=== PATIENT | male | born 1940 | race Caucasian/White ===

== ENCOUNTER 2017-10-08 19:22 | Inpatient (IN) | payer MEDICARE ==
[~2017-10-08 19:22] MED LIST: ISOVUE-370 76%-LOCM 1 ML ONE
--- NOTE | 2017-10-08 20:29 | RAD ---
PORTABLE CHEST: 10/08/17 HISTORY: Mental status change. The lungs appear clear. No evidence of vascular congestion, edema, or infiltrate. Heart size is upper normal. IMPRESSION: No acute abnormality identified. POS: [facility]
--- NOTE | 2017-10-08 20:30 | RAD ---
AP PELVIS: 10/08/17 HISTORY: Patient found down. Pelvis appears intact. Femoral heads appear intact. IMPRESSION: No acute fracture identified. POS: [facility]
--- NOTE | 2017-10-08 20:31 | RAD ---
RIGHT HIP: 10/08/17 Two views. HISTORY: Fall with injury to right hip. Deformity. No evidence of hip fracture identified. Femoral head contour is normal. IMPRESSION: No acute fracture identified. POS: [facility]
[2017-10-08 20:46] LABS: Hemoglobin 17.2 g/dL (14.0-18.0); Mean Corpuscular HGB CONC 32.9 g/dL (32.0-36.0); Mean Corpuscular Hemoglobin 32.7 pg (27.0-31.0); Mean Corpuscular Volume 99.4 fl (80.0-94.0); Platelet Count 465 thou/uL (130-400); RBC Distribution Width 14.2 % (11.5-14.5); Red Blood Cell (RBC) Count 5.27 mill/uL (4.70-6.10); White Blood Cell (WBC) Count 28.7 thou/uL (4.8-10.8)
[2017-10-08 21:00] LABS: CKMB 4.9 ng/mL (0-6.6); Troponin I 0.016 ng/mL (< 0.028)
[2017-10-08 21:01] LABS: Band 1 % (5-11); Lymphocytes 3 % (21-51); MDiff Complete? YES; Monocytes 17 % (0-10); Neutrophil 79 % (42-75); PLT Morphology Comment Appears Increased
[2017-10-08 21:02] LABS: ALT (SGPT) 15 U/L (8-55); AST (SGOT) 21 U/L (5-34); Albumin 4.3 g/dL (3.4-4.8); Alkaline Phosphatase 66 U/L (40-150); Anion Gap 20 mmol/L (10-20); BUN (Urea Nitrogen) 8 mg/dL (8.4-25.7); Bilirubin, Total 1.7 mg/dL (0.2-1.2); Calc. Creatinine Clearance 0 mL/min (70-130); Carbon Dioxide 20 mmol/L (23-31); Chloride 93 mmol/L (98-107); Estimated GFR-MDRD 68; Globulin 4.2 g/dL (2.4-3.5); Glucose 129 mg/dL (83-110); Potassium 4.1 mmol/L (3.5-5.1); Protein, Total 8.5 g/dL (5.8-8.1); Sodium 129 mmol/L (136-145)
--- NOTE | 2017-10-08 21:23 | CT ---
CT HEAD WITHOUT CONTRAST: 10/08/17 Multiple axial tomograms obtained through the head without IV enhancement. HISTORY: Found down by EMS. Mental status change. Ventricles are normal in size and position. There are mild chronic ischemic white matter changes. Mil d to moderate cortical atrophy. No mass, edema, or acute hemorrhage identified. No evidence of acute infarct. IMPRESSION: No acute findings. POS: [facility]
--- NOTE | 2017-10-08 21:29 | CT ---
CT CERVICAL SPINE: 10/08/17 Multiple axial tomograms obtained through the cervical spine with multiplanar reconstruction. HISTORY: Found down by EMS. Mental status change. Cervical vertebrae maintain height and alignment. There are degenerative changes with loss of disc sp matheus at all levels of the cervical spine. No evidence of fracture identified. IMPRESSION: No evidence of fracture identified. POS: [facility]
[2017-10-08 22:00] LABS: Bilirubin Moderate (Negative); Blood, Urine Moderate (Negative); Clarity CLOUDY (Clear); Glucose, Urine (Dipstick) Negative (Negative); Leukocyte Negative (Negative); Nitrite Negative (Negative); Protein, Urine (Dipstick) 100 mg/dL (Neg-Trace); Specific Gravity, Urine 1.017 (1.002-1.036)
[2017-10-08 22:02] LABS: Bacteria/HPF None Seen HPF (None Seen); Hyaline Casts/LPF 7-10 HYALINE CAST LPF (0-3 Hyaline); Pathc Cast-AUWi Flag 1.49 (0-2.49); RBC/HPF 21-50 HPF (0-3); Squamous Epithelial 0-3 HPF (0-3); WBC/HPF 0-3 HPF (0-3)
--- NOTE | 2017-10-08 22:26 | CT ---
CT ABDOMEN AND PELVIS WITH CONTRAST: 10/08/17 Multiple axial tomograms obtained through the abdomen and pelvis with IV enhancement. HISTORY: Patient found down. Mental status change. Lung bases are clear. Liver, spleen and pancreas unremarkable. Kidneys unremarkable. No hydronephrosi s. There are small renal cystic lesions seen. There is no intra-abdominal blood or fluid. Small bowel loops are normal caliber. Images through the pelvis show prostatic hypertrophy. Urinary bladder is u nremarkable. The aorta is normal caliber. The pelvis appears intact. There is a very subtle subcapital fracture involving the right hip. IMPRESSION: 1. A very subtle subcapital fracture of the right femoral head. 2. No acute intra-abdominal injury. No pelvic fracture. CT LOWER THORACIC AND LUMBAR SPINE: Coronal and sagittal reconstructions performed. The lower thoracic and lumbar vertebrae maintain norm al height and alignment. There is no evidence of fracture or compression. POS: [facility]
[2017-10-08 23:19] LABS: Osmolality, Urine 418 mOsm/kg (300-900)
[2017-10-08 23:50] LABS: Sodium, Urine 33 mmol/L (Not Available)
[2017-10-09] LABS: Lactic Acid 1.7 mmol/L (0.5-2.2)
[2017-10-09] MEDS ORDERED: Acetaminophen 325 MG TAB PO PRN ×2 (00:26→00:31)
[2017-10-09] MEDS ORDERED: Sodium Chloride 0.9% 1,000 ML IV SCH (00:26)
[2017-10-09] MEDS ORDERED: Ondansetron ODT 4 MG TAB SL PRN (00:26)
[2017-10-09] MEDS ORDERED: Ondansetron HCl/PF 4 MG/2 ML Vial IVP PRN (00:26)
[2017-10-09] MEDS ORDERED: Ondansetron ODT 4 MG TAB PO PRN (00:31)
[2017-10-09 00:43] LABS: Folate (Folic Acid) 11.3 ng/mL (7.0-31.4)
[2017-10-09 00:50] VITALS: BMI 21.9
--- NOTE | 2017-10-09 04:11 | HP-2 ---
CODE STATUS: FULL. PRIMARY CARE PHYSICIAN: [facility]. ATTENDING: Dr. De Yan RESIDENT: Dr. Taiwo Mcdonough CHIEF COMPLAINT: Altered mental status. HISTORY OF PRESENT ILLNESS: This is a 77-year male that was presented by EMS after a fall. His last known normal state of mind was over 24 hours ago. He was found by his neighbors after they heard mo aning. At this time, he denies any pain or recent illness. Family was not available at the time of interview. He has no other complaints at this time. Again, this patient is a very poor historian. In the ER, he was given a normal saline bolus of 1 liter. PAST MEDICAL HISTORY: Rheumatoid arthritis. PAST SURGICAL HISTORY: Left knee, right foot and a tonsillectomy. ALLERGIES: No known drug allergies. MEDICATIONS: 1. Folic acid 1 mg b.i.d. 2. Prednisone 5 mg daily. 3. Methotrexate 2.5 mg 8 tabs once a week. 4. Fosamax 70 mg 1 tab orally once a week. 5. Vitamin D with calcium. FAMILY HISTORY: Noncontributory. SOCIAL HISTORY: No tobacco, alcohol or drug use. REVIEW OF SYSTEMS: Unable to be obtained at this time. PHYSICAL EXAMINATION: VITAL SIGNS: Blood pressure was 184/98, pulse 84, respiration 17, temperature max 97.8, pulse ox 100 % on room air, current weight 75 kilos. GENERAL: He is alert and oriented x3. He is appropriately interactive. EYES: PERRLA. Conjunctivae within normal limits. ENT: Tympanic membranes are pearly harper without bulging or erythema. Nasal mucosa within normal gonzalez its. Oropharynx showed multiple missing teeth and poor dentition as well as dry mucous membranes. NECK: Supple, no lymphadenopathy, no thyromegaly. CARDIOVASCULAR: Regular rate and rhythm. No murmurs. Radial and pedal pulses equal bilaterally. RESPIRATORY: Normal effort, no retractions, clear lungs to auscultation bilaterally. SKIN: Warm and dry. No cyanosis. No lesions. ABDOMEN: Soft, nontender to palpation. Bowel sounds are present x4. No masses or distention. EXTREMITIES: No clubbing, cyanosis or edema. MUSCULOSKELETAL: Structure and tone within normal limits. He did show that he had decreased movemen t of his right lower extremity. He was poorly cooperative with mental exam because of his mental sta tus. NEUROLOGIC: No focal neurologic deficits were elicited other than a mild lid lag, left eyelid droop as well as a left oral droop. Again, he was poorly cooperative with this exam due to his mental stat e. His GCS was 15. The patient also showed a slowing of cognition and mild dysarthria during the ex am as well. The patient was also urine incontinent at this time. LABORATORY DATA: White blood cell count 28.7, platelet count 465, hemoglobin 17.2, hematocrit 52.4, MCV was 99.4, 79% neutrophils, 1% bands. Sodium is 129, potassium 4.1, chloride 93, bicarb 20, BUN 8 , creatinine 1.06, glucose was 129, calcium 10.0, total protein is 8.5, albumin 4.3, total bilirubin 1.7. AST was 21, ALT is 15, alkaline phosphatase 66. CK-MB is 4.9. Troponin I was 0.016. Urinalys is showed a specific gravity 1.077, a moderate amount of blood, 100 for protein, negative for leukocy te esterase, negative for nitrites, 15 for ketones, negative for glucose, 21-50 RBCs, 0-3 white blood cells, no bacteria seen. EKG showed normal sinus rhythm with flattened T waves in V1 and V2. IMAGING: The patient had a CT of his abdomen and pelvis that showed a very subtle subcapital fractur e of the right femoral head. No acute intra-abdominal injury, no pelvic fracture. It also showed no evidence of fracture or compression of his lower thoracic and lumbar spine. The patient had a CT ce rvical spine that showed no evidence of fracture identified. He also had a CT head without contrast that showed no acute findings. Also had a right hip x-ray that showed no acute fracture identified. He had an a pelvis AP x-ray that showed no acute fracture identified. He had a portable chest x-ray that showed no acute abnormality identified. ASSESSMENT AND PLAN: We have a 77-year-old male. 1. Encephalopathy with unknown origin. He was basically caceres scanned and was negative at this time. We did contact his brother, Sha, for further information and he has actually been in [place] over the winter and he has not seen him regularly, but he did say as recently as a few weeks ago, the patient suffered from like an upper respiratory like infection, but had recovered from that well. He did als o state at that time that his brother does not eat and drink as well as he should at times. We are g oing to rule out a stroke. We are going to allow for permissive hypertension up to 220/110 mmHg. We will put him on the neuro checks. We will make him n.p.o. until he passes a formal speech study. We also have several labs that will be pending at this time including ammonia, thiamine, osmolarity korina dies. 2. Hyponatremia, it is likely hypovolemic from dehydration. We will give him IV fluids and recheck that with a BMP. 3. Leukocytosis with a status of immunosuppression on methotrexate. Source is unknown. We will con medical coding technician antibiotics if a source presents itself or if he becomes febrile. 4. Hyperbilirubinemia, likely due to dehydration. We will trend that. 5. Dehydration. Give him IV fluids. 6. Hyperglycemia. We will monitor with a BMP. We will consider Accu-Cheks if it does elevate quite a bunch. 7. Elevated blood pressure, we are ruling out cardiovascular, so we are going to allow for permissiv e hypertension. It could be chronic or could be due to an acute cause. 8. Rheumatoid arthritis. We will continue his home meds. DISPOSITION/LENGTH OF HOSPITAL STAY: Will be inpatient and 2 midnights. Symptomatic medications will be provided. History and physical exam as well as management has been discussed with Dr. Yan.
[2017-10-09] MEDS: Sodium Chloride 0.9% 1,000 ML IV SCH ×4 (04:52→15:27)
[2017-10-09 06:15] LABS: Hemoglobin 14.4 g/dL (14.0-18.0); Lymphocytes 11 % (21-51); MDiff Complete? YES; Mean Corpuscular HGB CONC 34.1 g/dL (32.0-36.0); Mean Corpuscular Hemoglobin 34.1 pg (27.0-31.0); Mean Platelet Volume 8.3 fL (7.4-10.4); Monocytes 12 % (0-10); Neutrophil 77 % (42-75); Platelet Count 326 thou/uL (130-400); RBC Distribution Width 14.3 % (11.5-14.5); Red Blood Cell (RBC) Count 4.24 mill/uL (4.70-6.10); White Blood Cell (WBC) Count 17.9 thou/uL (4.8-10.8)
[2017-10-09 06:17] LABS: Anion Gap 13 mmol/L (10-20); BUN (Urea Nitrogen) 7 mg/dL (8.4-25.7); Calc. Creatinine Clearance 73 mL/min (70-130); Calcium 8.6 mg/dL (7.8-10.44); Carbon Dioxide 21 mmol/L (23-31); Cardiac Risk 3.8 (Less than 4.5); Chloride 100 mmol/L (98-107); Cholesterol 164 mg/dl (< 200 Desired); Estimated GFR-MDRD Greater than 90; Glucose 98 mg/dL (83-110); HDL Cholesterol 43 mg/dL (>60 Neg Risk); LDL Cholesterol, Calculated 105 mg/dL; Potassium 3.9 mmol/L (3.5-5.1); Sodium 130 mmol/L (136-145); Triglycerides 80 mg/dL (Less than 150)
--- NOTE | 2017-10-09 06:24 | PDOC.FM ---
- Subjective Subjective: Patient very pleasant this morning. Does not remember fall. Reports mild abdominal pain today. Denies etoh and drug use. No acute events overnight. Patient began vomiting thick yellow mucousy vomitus during exam. - Objective MAR Reviewed: Yes Vital Signs & Weight: Vital Signs (12 hours) Temp Pulse Resp BP Pulse Ox 10/09/17 03:06 99.0 F 76 20 97 10/09/17 00:20 99.0 F 76 20 156/73 H 98 Weight Weight 67.33 kg Result Diagrams: 10/09/17 05:14 10/09/17 05:14 <Jazmin Myles - Last Filed: 10/09/17 09:15> - Objective Vital Signs & Weight: Vital Signs (12 hours) Temp Pulse Resp BP Pulse Ox 10/09/17 08:00 97.7 F 80 20 139/66 97 10/09/17 04:31 98.4 F 72 20 152/74 H 96 10/09/17 03:06 99.0 F 76 20 97 10/09/17 00:20 99.0 F 76 20 156/73 H 98 Weight Weight 67.33 kg Result Diagrams: 10/09/17 05:14 10/09/17 05:14 <Pio Rascon - Last Filed: 10/09/17 10:52> Phys Exam - Physical Examination Constitutional: NAD HEENT: sclera anicteric poor dentition, multiple missing teeth, dry MM Neck: no nodes Respiratory: no wheezing, no rales, clear to auscultation bilateral Cardiovascular: RRR, no significant murmur Gastrointestinal: soft, positive bowel sounds mild ttp, mild distension Musculoskeletal: no edema Neurological: non-focal, moves all 4 limbs UE strength 4/5 Deviation from normal: AOx2 Skin: no rash <Jazmin Myles - Last Filed: 10/09/17 09:15> Dx/Plan (1) Altered mental status Code(s): R41.82 - ALTERED MENTAL STATUS, UNSPECIFIED Status: Acute (2) Dehydration with hyponatremia Code(s): E87.1 - HYPO-OSMOLALITY AND HYPONATREMIA Status: Acute (3) Leukocytosis Code(s): D72.829 - ELEVATED WHITE BLOOD CELL COUNT, UNSPECIFIED Status: Acute (4) Hyperbilirubinemia Code(s): E80.6 - OTHER DISORDERS OF BILIRUBIN METABOLISM Status: Acute (5) Rheumatoid arthritis Code(s): M06.9 - RHEUMATOID ARTHRITIS, UNSPECIFIED Status: Acute (6) Hematuria Code(s): R31.9 - HEMATURIA, UNSPECIFIED Status: Acute - Plan Plan: AMS - r/o stroke with physical exam findings of L facial droop and dysarthria, MRI this morning - consider consulting Neuro pending MRI results - Prolactin wnl and 24hrs s/p onset, not likely related to seizure - WBC elevated but no source for infection, LA wnl, will monitor for fever and obtain blood cx - HIV, RPR, thiamine pending - UDS, SDS, and CK Hypovolemic Hyponatremia - awaiting morning labs to see if improvement with IVF - given 2L bolus in ED and NS @ 125ml/hr - serum osm 275, urine osm wnl, urine Na wnl Leukocytosis - as above - blood cx pending. Repeat CBC this morning not back yet. Hyperbilirubinemia - likely 2/2 dehydration, will repeat CMP Hematuria - no gross hematuria - no evidence of mass on CTabd/pelvis - should have repeat UA in 2-4weeks to determine if it is persistent and needs further workup - could be due to acute illness RA - continue home meds <Jazmin Myles - Last Filed: 10/09/17 09:15> Attending Addendum - Attending Addendum I personally evaluated the patient and discussed the management with Dr. Myles. I agree with the History, Examination, Assessment and Plan documented above with any addition or exceptions noted below. Pt had some slowed mentation, but improved now. His family is at his bedside this morning. Pending MRI this morning to r/o CVA. Labs and clinically pt is significantly improved with fluids. Lives in independent living at [facility], family confirms that neighbor found him down, he has been throwing up some for the last 5 days from gastroenteritis. <Pio Rascon - Last Filed: 10/09/17 10:52>
[2017-10-09 06:32] LABS: Syphilis Antibody Nonreactive (Nonreactive); Syphilis Antibody Index 0.06 S/CO (<1.00 Non-Reactive)
[2017-10-09 06:33] LABS: HIV (1/2) Antibody/Antigen Non-Reactive (NonReactive); HIV 1/2 INDEX 0.08 S/CO (<1.00)
[2017-10-09] MEDS ORDERED: Methotrexate Sodium 2.5 MG TAB PO SCH ×2 (09:00)
[2017-10-09] MEDS ORDERED: Ergocalciferol 1.25 MG(50,000 UNITS) CAP PO SCH (09:00)
[2017-10-09 09:20] LABS: Amphetamine Not Detected (NotDetected); Barbiturates Screen Not Detected (NotDetected); Benzodiazepine Screen Not Detected (NotDetected); Cocaine Metabolite Screen Not Detected (NotDetected); Medtox Control Line Valid? VALID (VALID); Medtox Reader # READER 1; Methadone Not Detected (NotDetected); Methamphetamine Not Detected (NotDetected); Opiate Screen Not Detected (NotDetected); Oxycodone Screen Not Detected (NotDetected); Phencyclidine (PCP) Not Detected (NotDetected); THC/Cannabinoid Screen Not Detected (NotDetected); Tricyclic Screen Not Detected (NotDetected)
[2017-10-09 09:43] LABS: Acetaminophen Less than 6.0 mcg/mL (10.0-30.0); Alcohol Less than 10 mg/dL (Less than 10); CK (CPK) 499 U/L (30-200); Salicylate Less than 8.0 mg/dL (15.0-30.0)
[2017-10-09] MEDS: Aspirin 81 mg Enteric Coated Tablet PO SCH (10:58)
[2017-10-09] MEDS: predniSONE 5 MG TAB PO SCH (10:58)
[2017-10-09] MEDS: Ergocalciferol 1.25 MG(50,000 UNITS) CAP PO SCH (10:59)
[2017-10-09] MEDS: Famotidine 20 MG TAB PO SCH ×2 (10:59→22:17)
[2017-10-09] MEDS: Folic Acid 1 MG TAB PO SCH (11:00)
--- NOTE | 2017-10-09 15:20 | MRI ---
BRAIN MRI WITH AND WITHOUT CONTRAST: Clinical history: Patient found down. Clinical evaluation for stroke, CVA. FINDINGS: There is parenchymal volume loss with compensatory dilatation of the ventricular system. There is no acute territorial infarction, mass effect, or midline shift. Mild chronic microvascular ischemic dise ase is present without the cerebral white matter. No pathologic intraaxial enhancement. The imaged sk ull base flow voids are grossly patent. [place] intraocular lens is absent. There is scattered mucosal thickening in the paranasal sinuses. Mild right mastoid fluid is present. IMPRESSION: 1. No acute intracranial abnormalities. 2. Mild chronic microvascular ischemic disease. POS: [facility]
[2017-10-10] MEDS: Sodium Chloride 0.9% 1,000 ML IV SCH ×2 (03:27→09:39)
--- NOTE | 2017-10-10 07:00 | PDOC.FM ---
- Subjective Subjective: Patient awake and doing well this am. Staff reports was up all night and tried to get out of bed multiple times. No more vomiting or diarrhea. Nurse also reports very thirsty overnight. Patient with no complaints this am. - Objective MAR Reviewed: Yes Vital Signs & Weight: Vital Signs (12 hours) Temp Pulse Resp BP Pulse Ox 10/10/17 04:00 97.4 F L 83 16 162/117 H 98 10/10/17 00:00 97.0 F L 73 18 151/92 H 96 10/09/17 20:00 97.5 F L 67 18 97 10/09/17 19:58 97.5 F L 67 18 125/76 97 Weight Weight 67.33 kg I&O: 10/09/17 10/10/17 10/11/17 06:59 06:59 06:59 Intake Total 4772.5 Output Total 600 Balance 4172.5 Result Diagrams: 10/10/17 07:43 10/10/17 07:43 <Jazmin Myles - Last Filed: 10/10/17 09:21> - Objective Vital Signs & Weight: Vital Signs (12 hours) Temp Pulse Pulse Pulse Resp BP BP 10/10/17 08:45 80 84 140/74 144/76 H 10/10/17 07:55 98.2 F 66 20 10/10/17 04:00 97.4 F L 83 16 10/10/17 00:00 97.0 F L 73 18 BP Pulse Ox 10/10/17 08:45 10/10/17 07:55 140/68 98 10/10/17 04:00 162/117 H 98 10/10/17 00:00 151/92 H 96 Weight Weight 67.33 kg I&O: 10/09/17 10/10/17 10/11/17 06:59 06:59 06:59 Intake Total 4772.5 Output Total 600 Balance 4172.5 Result Diagrams: 10/10/17 07:43 10/10/17 07:43 <Pio Rascon - Last Filed: 10/10/17 10:21> Phys Exam - Physical Examination Constitutional: NAD HEENT: PERRLA, sclera anicteric Neck: no nodes Respiratory: no wheezing, no rales Cardiovascular: RRR, no significant murmur Gastrointestinal: soft, non-tender Musculoskeletal: no edema Neurological: non-focal Psychiatric: normal affect, A&O x 3 <Jazmin Myles - Last Filed: 10/10/17 09:21> Dx/Plan (1) Altered mental status Code(s): R41.82 - ALTERED MENTAL STATUS, UNSPECIFIED Status: Acute (2) Dehydration with hyponatremia Code(s): E87.1 - HYPO-OSMOLALITY AND HYPONATREMIA Status: Acute (3) Leukocytosis Code(s): D72.829 - ELEVATED WHITE BLOOD CELL COUNT, UNSPECIFIED Status: Acute (4) Hyperbilirubinemia Code(s): E80.6 - OTHER DISORDERS OF BILIRUBIN METABOLISM Status: Acute (5) Rheumatoid arthritis Code(s): M06.9 - RHEUMATOID ARTHRITIS, UNSPECIFIED Status: Acute (6) Hematuria Code(s): R31.9 - HEMATURIA, UNSPECIFIED Status: Acute - Plan Plan: AMS - continues to improve, unsure if at baseline or not - MRI negative for CVA - MMSE performed today with score of 25, consider MoCA for better evaluation for mild dementia - Prolactin wnl and 24hrs s/p onset, not likely related to seizure - WBC elevated but no source for infection, LA wnl, will monitor for fever and obtain blood cx - HIV, RPR, wnl - UDS, SDS wnl Hypovolemic Hyponatremia - resolved, d/c fluids Leukocytosis - as above - blood cx pending. Repeat CBC this morning not back yet. Hyperbilirubinemia - improved Hematuria - no gross hematuria - no evidence of mass on CTabd/pelvis - should have repeat UA in 2-4weeks to determine if it is persistent and needs further workup - could be due to acute illness RA - continue home meds Deconditioning - PT eval - could need placement for stregth conditioning before going home <Jazmin Myles - Last Filed: 10/10/17 09:21> Attending Addendum - Attending Addendum I personally evaluated the patient and discussed the management with Dr. Myles I agree with the History, Examination, Assessment and Plan documented above with any addition or exceptions noted below. Pt clinically feels much better, agitated o/n. Possible delirium. Completed a MMSE today with a score of 24. Staff states that he has been needing assistance getting out of bed, so will get PT eval. Possible SNF placement. Follow-up CT findings offracture not seen on plain films and pt' clinically is ambulating inconsistent with fracture. If radiology confirms fracture, consult Ortho prior to discharge. BP elevated this am, monitor for trend as tends to vary fairly widely. <Pio Rascon - Last Filed: 10/10/17 10:21>
[2017-10-10 08:40] LABS: #Eosinphils 0.1 thou/uL (0.0-0.7); #Lymphocytes 1.8 thou/uL (1.20-3.40); #Monocytes 1.2 thou/uL (0.11-0.59); #Neutrophils 8.7 thou/uL (1.40-6.50); %Basophils 0.3 % (0.0-1.0); %Eosinophils 0.5 % (0.0-10.0); %Monocytes 10.1 % (0.0-10.0); %Neutrophils 74.2 % (42.0-75.0); Hemoglobin 13.1 g/dL (14.0-18.0); Mean Corpuscular HGB CONC 32.9 g/dL (32.0-36.0); Mean Corpuscular Hemoglobin 33.4 pg (27.0-31.0); Mean Platelet Volume 8.4 fL (7.4-10.4); Platelet Count 325 thou/uL (130-400); RBC Distribution Width 14.2 % (11.5-14.5); Red Blood Cell (RBC) Count 3.94 mill/uL (4.70-6.10); White Blood Cell (WBC) Count 11.7 thou/uL (4.8-10.8)
[2017-10-10 08:55] LABS: Anion Gap 13 mmol/L (10-20); BUN (Urea Nitrogen) 5 mg/dL (8.4-25.7); Calc. Creatinine Clearance 82 mL/min (70-130); Calcium 8.6 mg/dL (7.8-10.44); Carbon Dioxide 23 mmol/L (23-31); Chloride 106 mmol/L (98-107); Estimated GFR-MDRD Greater than 90; Glucose 94 mg/dL (83-110); Potassium 3.5 mmol/L (3.5-5.1); Sodium 138 mmol/L (136-145)
[2017-10-10] MEDS: Ergocalciferol 1.25 MG(50,000 UNITS) CAP PO SCH (09:41)
[2017-10-10] MEDS: Aspirin 81 mg Enteric Coated Tablet PO SCH (09:41)
[2017-10-10] MEDS: Folic Acid 1 MG TAB PO SCH (09:41)
[2017-10-10] MEDS: Famotidine 20 MG TAB PO SCH ×2 (09:41→20:03)
[2017-10-10] MEDS: predniSONE 5 MG TAB PO SCH (09:41)
--- NOTE | 2017-10-10 15:49 | MRI ---
MRI OF THE RIGHT HIP: DATE: 10/10/17. PROVIDED CLINICAL HISTORY: Right hip pain status post injury, abnormal CT. FINDINGS: Regional marrow signal appears unremarkable. There is no evidence for right hip fracture. There is a physiologic amount of fluid present within each hip. The right hip flexor, abductor, adductor, and hamstring tendons demonstrate an intact MR appearance. Nondisplaced degenerative tearing is noted involving the anterior-superior and superior acetabular la evette. No focal femoral-acetabular articular cartilage defect is apparent. The prostate gland appears enlarged and heterogeneous. Degenerative changes involving the lower lumbar spine are partially vis ualized. IMPRESSION: No evidence for right hip fracture. POS: [facility]
[2017-10-11] MEDS ORDERED: Polyethylene Glycol 3350 17 GM Packet PO PRN (05:32)
--- NOTE | 2017-10-11 05:39 | PDOC.FM ---
- Subjective Subjective: Patient up eating breakfast this morning. No acute events overnight. Was not able to be placed at [facility] due to insurance and is awaiting possible placement at [facility]. Patient is agreeable to this decision. - Objective MAR Reviewed: Yes Vital Signs & Weight: Vital Signs (12 hours) Temp Pulse Resp BP Pulse Ox 10/11/17 04:48 98.2 F 58 L 20 127/63 95 10/11/17 00:00 98.1 F 73 16 163/79 H 95 10/10/17 20:03 98.5 F 73 18 10/10/17 20:00 98.5 F 73 18 151/79 H 100 Weight Weight 68.629 kg I&O: 10/09/17 10/10/17 10/11/17 06:59 06:59 06:59 Intake Total 4772.5 2275 Output Total 600 Balance 4172.5 2275 Result Diagrams: 10/10/17 07:43 10/10/17 07:43 <Jazmin Myles - Last Filed: 10/11/17 09:06> - Objective Vital Signs & Weight: Vital Signs (12 hours) Temp Pulse Resp BP Pulse Ox 10/11/17 08:00 97.4 F L 73 18 174/92 H 98 10/11/17 04:48 98.2 F 58 L 20 127/63 95 10/11/17 00:00 98.1 F 73 16 163/79 H 95 Weight Weight 68.629 kg I&O: 10/10/17 10/11/17 10/12/17 06:59 06:59 06:59 Intake Total 4772.5 3235 Output Total 600 Balance 4172.5 3235 Result Diagrams: 10/10/17 07:43 10/10/17 07:43 <Pio Rascon - Last Filed: 10/11/17 10:14> Phys Exam - Physical Examination Constitutional: NAD HEENT: moist MMs Neck: no nodes, no JVD, full ROM Respiratory: no wheezing, no rales, no rhonchi, clear to auscultation bilateral Cardiovascular: RRR, no significant murmur Gastrointestinal: soft, non-tender, no distention Musculoskeletal: no edema, pulses present Neurological: non-focal, moves all 4 limbs Lymphatic: no nodes Psychiatric: A&O x 3 <Jazmin Myles - Last Filed: 10/11/17 09:06> Dx/Plan (1) Altered mental status Code(s): R41.82 - ALTERED MENTAL STATUS, UNSPECIFIED Status: Resolved (2) Dehydration with hyponatremia Code(s): E87.1 - HYPO-OSMOLALITY AND HYPONATREMIA Status: Resolved (3) Leukocytosis Code(s): D72.829 - ELEVATED WHITE BLOOD CELL COUNT, UNSPECIFIED Status: Resolved (4) Hyperbilirubinemia Code(s): E80.6 - OTHER DISORDERS OF BILIRUBIN METABOLISM Status: Resolved (5) Rheumatoid arthritis Code(s): M06.9 - RHEUMATOID ARTHRITIS, UNSPECIFIED Status: Chronic (6) Hematuria Code(s): R31.9 - HEMATURIA, UNSPECIFIED Status: Acute - Plan Plan: AMS - resolved, likely was secondary to acute gastroenteritis causing dehydration and hyponatremia - MMSE performed with score of 25, consider MoCA for better evaluation for mild dementia - Ruled out CVA and Seizure with neg Prolactin and MRIbrain - WBC initially elevated but now normalized - HIV, RPR, wnl - UDS, SDS wnl Hypovolemic Hyponatremia - resolved - PO hydration Leukocytosis - resolved - blood cx negative. Hyperbilirubinemia - improved Hematuria - no gross hematuria - no evidence of mass on CTabd/pelvis - should have repeat UA in 2-4weeks to determine if it is persistent and needs further workup - could be due to acute illness RA - continue home meds Deconditioning - PT recommends rehab, not strong enough to go back to independent living. Awaiting placement in SNF for rehab to return to independent living. <Jazmin Myles - Last Filed: 10/11/17 09:06> Attending Addendum - Attending Addendum I personally evaluated the patient and discussed the management with Dr. Matute. I agree with the History, Examination, Assessment and Plan documented above with any addition or exceptions noted below. MRI of LE was negative for fracture yesterday. Pt is doing well. Is pending placement to SNF today, ready to d/c when placement is available. <Pio Rascon - Last Filed: 10/11/17 10:14>
[2017-10-11] MEDS: Docusate 100 MG CAP PO SCH ×2 (08:30→21:07)
[2017-10-11] MEDS: Famotidine 20 MG TAB PO SCH ×2 (08:30→21:07)
[2017-10-11] MEDS: Metamucil PACK PO SCH (08:30)
[2017-10-11] MEDS: Aspirin 81 mg Enteric Coated Tablet PO SCH (08:30)
[2017-10-11] MEDS: predniSONE 5 MG TAB PO SCH (08:30)
[2017-10-11] MEDS: Folic Acid 1 MG TAB PO SCH (08:30)
[2017-10-11] MEDS: Ergocalciferol 1.25 MG(50,000 UNITS) CAP PO SCH (08:30)
--- NOTE | 2017-10-11 16:36 | PQF ---
CLINICAL DOCUMENTATION IMPROVEMENT CLARIFICATION FORM: ICD-10 Updated PLEASE DO AN ADDENDUM TO THE PROGRESS NOTE WITH ANY DOCUMENTATION UPDATES OR ADDITIONS AND CARRY THROUGH TO DC SUMMARY. THANK YOU. DATE: 10/11/17 ATTN: Dr. Myles/ Attending Dr. Rascon Please exercise your independent, professional judgment in responding to the clarification form. Clinical indicators are provided on the bottom of this form for your review Please check appropriate box(s): [ ] Encephalopathy: Etiology: [ ] Hypertensive [ ] Metabolic [ ] Toxic [ ] Unspecified [ ] in the setting of underlying dementia [ ] Other (please specify) Type: [ ] Acute [ ] Subacute [ ] Chronic [ ] Other diagnosis [ ] Unable to determine In addition, please specify: Present on Admission (POA): [ ] Yes [ ] No [ ] Unable to determine For continuity of documentation, please document condition throughout progress notes and discharge summary. Thank You. CLINICAL INDICATORS - SIGNS / SYMPTOMS / LABS H&P: ENCEPHALOPATHY WITH UNKOWN ORIGIN. PN 10/09: ALTERED MENTAL STATUS ATTENDING: PT HAD SOME SLOWED MENTATION, BUT IMPROVED NOW. PN 10/11: AMS -RESOLVED, LIKELY WAS 2/2 ACUTE GASTROENTERITIS CAUSING DEHYDRATION & HYPONATREMIA RISKS: H&P: AGE 77. HYPONATREMIA. LEUKOCYTOSIS. DEHYDRATION. HYPERGLYCEMIA. TREATMENT: CPOE 10/08: NS IV 125 MLS/ HR. COMPLETED 10/10 Thank you, Lita (This form is maintained as a part of the permanent medical record) 2015 [employer]. All Rights Reserved Lita Hill RN, BSN [email or web address] Office: [phone] [facility]
--- NOTE | 2017-10-12 08:16 | PDOC.FM ---
- Subjective Subjective: Patient up and walking around the room this morning, just got out of the shower. He reports feeling back to normal. PT documentation reports patient ambulating and transferring without assist and could possibly be appropriate for HH now at his independent living center. - Objective MAR Reviewed: Yes Vital Signs & Weight: Vital Signs (12 hours) Temp Pulse Resp BP Pulse Ox 10/12/17 07:47 98.4 F 66 20 163/78 H 96 10/12/17 03:58 98.3 F 63 16 150/89 H 98 10/12/17 00:00 97.6 F 65 18 161/81 H 100 10/11/17 21:07 97.5 F L 68 18 98 Weight Weight 68.492 kg I&O: 10/11/17 10/12/17 10/13/17 06:59 06:59 06:59 Intake Total 3235 900 Balance 3235 900 Result Diagrams: 10/10/17 07:43 10/10/17 07:43 Phys Exam - Physical Examination Constitutional: NAD HEENT: PERRLA, moist MMs Neck: full ROM Respiratory: no wheezing, no rales, clear to auscultation bilateral Cardiovascular: RRR, no significant murmur Gastrointestinal: soft, non-tender Musculoskeletal: no edema, pulses present Neurological: moves all 4 limbs Lymphatic: no nodes Psychiatric: A&O x 3 Skin: cap refill <2 seconds Dx/Plan (1) Altered mental status Code(s): R41.82 - ALTERED MENTAL STATUS, UNSPECIFIED Status: Resolved (2) Dehydration with hyponatremia Code(s): E87.1 - HYPO-OSMOLALITY AND HYPONATREMIA Status: Resolved (3) Leukocytosis Code(s): D72.829 - ELEVATED WHITE BLOOD CELL COUNT, UNSPECIFIED Status: Resolved (4) Hyperbilirubinemia Code(s): E80.6 - OTHER DISORDERS OF BILIRUBIN METABOLISM Status: Resolved (5) Rheumatoid arthritis Code(s): M06.9 - RHEUMATOID ARTHRITIS, UNSPECIFIED Status: Chronic (6) Hematuria Code(s): R31.9 - HEMATURIA, UNSPECIFIED Status: Acute - Plan Plan: AMS - resolved, likely was secondary to acute gastroenteritis causing dehydration and hyponatremia - MMSE performed with score of 25, consider MoCA for better evaluation for mild dementia - Ruled out CVA and Seizure with neg Prolactin and MRIbrain - WBC initially elevated but now normalized - HIV, RPR, wnl - UDS, SDS wnl Hypovolemic Hyponatremia - resolved - PO hydration Leukocytosis - resolved - blood cx negative. Hyperbilirubinemia - improved Hematuria - no gross hematuria - no evidence of mass on CTabd/pelvis - should have repeat UA in 2-4weeks to determine if it is persistent and needs further workup - could be due to acute illness RA - continue home meds Deconditioning - PT originally recommended rehab in SNF, but patient has made great strides in strength with daily PT. Could possibly qualify for HH at independent living [place]. CM consult placed for evaluation.
[2017-10-12] MEDS: predniSONE 5 MG TAB PO SCH (09:40)
[2017-10-12] MEDS: Aspirin 81 mg Enteric Coated Tablet PO SCH (09:40)
[2017-10-12] MEDS: Famotidine 20 MG TAB PO SCH ×2 (09:40→21:14)
[2017-10-12] MEDS: Docusate 100 MG CAP PO SCH ×2 (09:40→21:14)
[2017-10-12] MEDS: Metamucil PACK PO SCH (09:40)
[2017-10-12] MEDS: Folic Acid 1 MG TAB PO SCH (09:40)
[2017-10-12] MEDS: Ergocalciferol 1.25 MG(50,000 UNITS) CAP PO SCH (12:10)
[2017-10-12] MEDS: Lisinopril 5 MG TAB PO SCH (12:10)
--- NOTE | 2017-10-13 06:19 | PDOC.FM ---
- Subjective Subjective: Patient resting comfortably this morning. Reports he is ready to go home. No acute events overnight. - Objective MAR Reviewed: Yes Vital Signs & Weight: Vital Signs (12 hours) Temp Pulse Resp BP Pulse Ox 10/13/17 03:57 97.5 F L 60 16 173/87 H 98 10/12/17 21:15 97.5 F L 65 16 97 10/12/17 20:56 97.5 F L 65 16 132/71 98 Weight Weight 68.175 kg I&O: 10/11/17 10/12/17 10/13/17 06:59 06:59 06:59 Intake Total 3235 900 3300 Balance 3235 900 3300 Result Diagrams: 10/10/17 07:43 10/10/17 07:43 <Jazmin Myles - Last Filed: 10/13/17 07:45> - Objective Vital Signs & Weight: Vital Signs (12 hours) Temp Pulse Resp BP BP Pulse Ox 10/13/17 08:37 56 L 155/85 H 10/13/17 08:00 97.8 F 56 L 20 156/88 H 99 10/13/17 03:57 97.5 F L 60 16 173/87 H 98 Weight Weight 68.175 kg I&O: 10/12/17 10/13/17 10/14/17 06:59 06:59 06:59 Intake Total 900 3300 Balance 900 3300 Result Diagrams: 10/10/17 07:43 10/10/17 07:43 <Pio Rascon - Last Filed: 10/13/17 10:19> Phys Exam - Physical Examination Constitutional: NAD HEENT: PERRLA, moist MMs Neck: no nodes, full ROM Respiratory: no wheezing, no rales, clear to auscultation bilateral Cardiovascular: RRR, no significant murmur Musculoskeletal: no edema Neurological: non-focal, moves all 4 limbs Psychiatric: normal affect, A&O x 3 <Jazmin Myles - Last Filed: 10/13/17 07:45> Dx/Plan (1) Altered mental status Code(s): R41.82 - ALTERED MENTAL STATUS, UNSPECIFIED Status: Resolved (2) Dehydration with hyponatremia Code(s): E87.1 - HYPO-OSMOLALITY AND HYPONATREMIA Status: Resolved (3) Leukocytosis Code(s): D72.829 - ELEVATED WHITE BLOOD CELL COUNT, UNSPECIFIED Status: Resolved (4) Hyperbilirubinemia Code(s): E80.6 - OTHER DISORDERS OF BILIRUBIN METABOLISM Status: Resolved (5) Rheumatoid arthritis Code(s): M06.9 - RHEUMATOID ARTHRITIS, UNSPECIFIED Status: Chronic (6) Hematuria Code(s): R31.9 - HEMATURIA, UNSPECIFIED Status: Acute - Plan Plan: AMS - resolved, likely was secondary to acute gastroenteritis causing dehydration and hyponatremia - MMSE performed with score of 25, consider MoCA for better evaluation for mild dementia - Ruled out CVA and Seizure with neg Prolactin and MRIbrain - WBC initially elevated but now normalized - HIV, RPR, wnl - UDS, SDS wnl Hypovolemic Hyponatremia - resolved - PO hydration Leukocytosis - resolved - blood cx negative. Hyperbilirubinemia - improved Hematuria - no gross hematuria - no evidence of mass on CTabd/pelvis - should have repeat UA in 2-4weeks to determine if it is persistent and needs further workup - could be due to acute illness RA - continue home meds Deconditioning - PT originally recommended rehab in SNF, but patient has made great strides in strength with daily PT. Could possibly qualify for HH at independent living center. CM consult placed for evaluation. <Jazmin Myles - Last Filed: 10/13/17 07:45> Attending Addendum - Attending Addendum I personally evaluated the patient and discussed the management with Dr. Myles. I agree with the History, Examination, Assessment and Plan documented above with any addition or exceptions noted below. Patient back to baseline and will be discharged home with Home Health. <Pio Rascon - Last Filed: 10/13/17 10:19>
[2017-10-13] MEDS: Metamucil PACK PO SCH (08:36)
[2017-10-13] MEDS: Folic Acid 1 MG TAB PO SCH (08:37)
[2017-10-13] MEDS: predniSONE 5 MG TAB PO SCH (08:37)
[2017-10-13] MEDS: Lisinopril 5 MG TAB PO SCH (08:37)
[2017-10-13] MEDS: Famotidine 20 MG TAB PO SCH (08:38)
[2017-10-13] MEDS: Docusate 100 MG CAP PO SCH (08:38)
[2017-10-13] MEDS: Aspirin 81 mg Enteric Coated Tablet PO SCH (08:38)
[2017-10-13] MEDS: Ergocalciferol 1.25 MG(50,000 UNITS) CAP PO SCH (08:38)
[2017-10-13 12:14] VITALS: BP 115/69; TEMP 98
[2017-10-16] MEDS ORDERED: Alendronate Sodium 70 mg Tablet PO SCH (06:00)
== END 2017-10-13 14:02 | disposition home health service (06) | DRG 391 ==
LOC: ERS 19:22 → 2SE 23:00
PROVIDERS: ADMIT Family Medicine; ATTEND Family Medicine
DX: K52.9 Noninfective gastroenteritis and colitis, unspecified (principal); G93.40 Encephalopathy, unspecified; E86.0 Dehydration; E87.1 Hypo-osmolality and hyponatremia; M06.9 Rheumatoid arthritis, unspecified; W18.30XA Fall on same level, unspecified, initial encounter; Z79.899 Other long term (current) drug therapy; E80.6 Other disorders of bilirubin metabolism; R73.9 Hyperglycemia, unspecified; R31.9 Hematuria, unspecified
CPT/HCPCS: 36415; 51701; 70450; 70553; 71045; 72125; 72170; 74177; 80048; 80053; 80061; 80306; 80307; 81003; 81015; 82140; 82248; 82274; 82550; 82553; 82607; 82746; 83605; 83630; 83735; 83930; 83935; 84146; 84300; 84425; 84443; 84484; 85025; 86780; 87040; 87389; 93005; 96360; 96361; G8978-GP-CK; G8979-GP-CI; G8996-GN-CH; G8997-GN-CH; J8610

== ENCOUNTER 2018-03-25 23:15 | Emergency (ER) | payer MEDICARE ==
[2018-03-26] MEDS ORDERED: Ibuprofen 800 MG TAB ONE (01:46)
[2018-03-26 02:24] LABS: Hemoglobin 14.2 g/dL (14.0-18.0); Mean Corpuscular HGB CONC 34.7 g/dL (32.0-36.0); Mean Corpuscular Hemoglobin 34.4 pg (27.0-31.0); Mean Corpuscular Volume 99.1 fL (78.0-98.0); Mean Platelet Volume 7.8 fL (7.4-10.4); Platelet Count 320 thou/uL (130-400); RBC Distribution Width 12.2 % (11.5-14.5); Red Blood Cell (RBC) Count 4.13 mill/uL (4.70-6.10); White Blood Cell (WBC) Count 14.7 thou/uL (4.8-10.8)
[2018-03-26 02:37] LABS: Band 3 % (5-11); Lymphocytes 9 % (21-51); MDiff Complete? YES; Monocytes 6 % (0-10); Neutrophil 82 % (42-75); PLT Morphology Comment Appears Adequate; RBC Morphology Normal
[2018-03-26 02:41] LABS: ALT (SGPT) 10 U/L (8-55); AST (SGOT) 13 U/L (5-34); Albumin 4.3 g/dL (3.4-4.8); Alkaline Phosphatase 66 U/L (40-150); Anion Gap 17 mmol/L (10-20); BUN (Urea Nitrogen) 7 mg/dL (8.4-25.7); CRP (Inflammatory) 3.95 mg/dL (= or < 0.5); Calc. Creatinine Clearance 0 mL/min (70-130); Calcium 9.3 mg/dL (7.8-10.44); Carbon Dioxide 21 mmol/L (23-31); Chloride 103 mmol/L (98-107); Estimated GFR-MDRD 68; Globulin 3.5 g/dL (2.4-3.5); Glucose 139 mg/dL (83-110); Potassium 3.6 mmol/L (3.5-5.1); Protein, Total 7.8 g/dL (5.8-8.1); Sodium 137 mmol/L (136-145)
--- NOTE | 2018-03-26 08:32 | RAD ---
3 VIEWS LEFT ANKLE: Date: 03/26/18 HISTORY: Left ankle pain and swelling. FINDINGS: The ankle mortise is congruent. No fracture or dislocation is seen. There are prominent degenerative changes involving the talonavicular joint. A plantar calcaneal enthesophyte is seen. Vascular calcifi cations are seen about the distal left lower extremity and at the ankle. IMPRESSION: 1. No acute osseous abnormality left ankle. 2. 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 3. Vascular calcifications. POS: C
== END 2018-03-26 04:11 | disposition home or self-care (01) ==
LOC: ERS 23:15
DX: M25.572 Pain in left ankle and joints of left foot (principal); I10 Essential (primary) hypertension; M19.90 Unspecified osteoarthritis, unspecified site
CPT/HCPCS: 36415; 80053; 85025; 85652; 86140

== ENCOUNTER 2021-05-25 00:23 | Observation (INO) | payer MEDICARE ==
[2021-05-25] MEDS ORDERED: Morphine 2 MG/ML VIAL ONE ×2 (01:09→04:54)
[2021-05-25] MEDS ORDERED: Ondansetron PF 4 MG/2 ML Vial ONE (01:10)
[2021-05-25 01:39] LABS: #Lymphocytes 1.6 thou/uL (1.20-3.40); #Neutrophils 10.2 thou/uL (1.40-6.50); %Basophils 0.1 % (0.0-1.0); %Eosinophils 0.3 % (0.0-10.0); %Lymphocytes 11.7 % (21.0-51.0); %Monocytes 14.3 % (0.0-10.0); %Neutrophils 73.7 % (42.0-75.0); Hemoglobin 11.5 g/dL (14.0-18.0); Mean Corpuscular HGB CONC 32.7 g/dL (32.0-36.0); Mean Corpuscular Hemoglobin 31.7 pg (27.0-31.0); Mean Corpuscular Volume 96.9 fL (78.0-98.0); Mean Platelet Volume 7.3 fL (7.4-10.4); Platelet Count 382 thou/uL (130-400); RBC Distribution Width 12.8 % (11.5-14.5); Red Blood Cell (RBC) Count 3.61 mill/uL (4.70-6.10); White Blood Cell (WBC) Count 13.8 thou/uL (4.8-10.8)
[2021-05-25 02:09] LABS: ALT (SGPT) 26 U/L (8-55); AST (SGOT) 30 U/L (5-34); Albumin 3.7 g/dL (3.4-4.8); Alkaline Phosphatase 87 U/L (40-110); Anion Gap 11 mmol/L (10-20); BUN (Urea Nitrogen) 16 mg/dL (8.4-25.7); Bilirubin, Total 0.3 mg/dL (0.2-1.2); Calc. Creatinine Clearance 0 mL/min (70-130); Carbon Dioxide 27 mmol/L (23-31); Chloride 91 mmol/L (98-107); Globulin 3.5 g/dL (2.4-3.5); Glucose 136 mg/dL (83-110); Lipase 15 U/L (8-78); Potassium 4.2 mmol/L (3.5-5.1); Protein, Total 7.2 g/dL (5.8-8.1); Sodium 125 mmol/L (136-145)
[2021-05-25] MEDS ORDERED: Morphine 2 MG/ML VIAL SLOW IVP PRN ×2 (04:42→09:37)
[2021-05-25] MEDS ORDERED: Ondansetron PF 4 MG/2 ML Vial IVP PRN (04:45)
[2021-05-25] MEDS ORDERED: Lactated Ringer's 1,000 ML IV SCH (04:45)
[2021-05-25 09:39] VITALS: BMI 18.3
[2021-05-25] MEDS ORDERED: Morphine 4 MG/ML VIAL SLOW IVP PRN (09:39)
[2021-05-25] MEDS: Enoxaparin Sodium 40 MG/0.4 ML SYRINGE SC SCH (09:53)
[2021-05-25] MEDS: Pantoprazole 40 MG VIAL IVP SCH (09:53)
[2021-05-25] MEDS: Sodium Chloride 0.9% 1,000 ML IV SCH ×2 (09:54→18:10)
[2021-05-25] MEDS: Amlodipine 5 MG TAB PO SCH (09:55)
[2021-05-25] MEDS ORDERED: Iopamidol-370 76% 500 ML 1 ML ONE (10:06)
[2021-05-26] MEDS ORDERED: Melatonin 3 MG TAB PO PRN (00:13)
[2021-05-26 04:23] LABS: #Lymphocytes 1.6 thou/uL (1.20-3.40); #Monocytes 1.7 thou/uL (0.11-0.59); %Basophils 0.2 % (0.0-1.0); %Eosinophils 0.1 % (0.0-10.0); %Lymphocytes 9.6 % (21.0-51.0); %Monocytes 10.5 % (0.0-10.0); %Neutrophils 79.6 % (42.0-75.0); Hemoglobin 11.7 g/dL (14.0-18.0); Mean Corpuscular HGB CONC 33.3 g/dL (32.0-36.0); Mean Corpuscular Hemoglobin 32.5 pg (27.0-31.0); Mean Corpuscular Volume 97.6 fL (78.0-98.0); Mean Platelet Volume 7.1 fL (7.4-10.4); Platelet Count 334 thou/uL (130-400); RBC Distribution Width 12.9 % (11.5-14.5); White Blood Cell (WBC) Count 16.4 thou/uL (4.8-10.8)
[2021-05-26] MEDS: Sodium Chloride 0.9% 1,000 ML IV SCH (04:30)
[2021-05-26 04:47] LABS: ALT (SGPT) 17 U/L (8-55); AST (SGOT) 20 U/L (5-34); Albumin 3.4 g/dL (3.4-4.8); Alkaline Phosphatase 68 U/L (40-110); Anion Gap 12 mmol/L (10-20); BUN (Urea Nitrogen) 9 mg/dL (8.4-25.7); Bilirubin, Total 0.8 mg/dL (0.2-1.2); Calc. Creatinine Clearance 58 mL/min (70-130); Calcium 8.8 mg/dL (7.8-10.44); Carbon Dioxide 25 mmol/L (23-31); Chloride 97 mmol/L (98-107); Globulin 3.2 g/dL (2.4-3.5); Glucose 112 mg/dL (83-110); Potassium 4.4 mmol/L (3.5-5.1); Protein, Total 6.6 g/dL (5.8-8.1); Sodium 130 mmol/L (136-145)
[2021-05-26 09:12] LABS: SARS-CoV-2 PCR by NAA Not Detected (NotDetected)
[2021-05-26] MEDS: Pantoprazole 40 MG VIAL IVP SCH (09:24)
[2021-05-26] MEDS: Amlodipine 5 MG TAB PO SCH (09:24)
[2021-05-26] MEDS: Enoxaparin Sodium 40 MG/0.4 ML SYRINGE SC SCH (09:24)
[2021-05-26 12:12] VITALS: BP 128/63; TEMP 98.3
== END 2021-05-26 16:04 | disposition home or self-care (01) ==
LOC: ERS 00:23 → ONC 03:54
PROVIDERS: ADMIT Family Medicine; ATTEND Family Medicine
DX: K85.90 Acute pancreatitis without necrosis or infection, unspecified (principal); E87.1 Hypo-osmolality and hyponatremia; D64.9 Anemia, unspecified; I10 Essential (primary) hypertension; M06.9 Rheumatoid arthritis, unspecified; Z20.822 Contact with and (suspected) exposure to COVID-19; Z79.899 Other long term (current) drug therapy
CPT/HCPCS: 36415; 74177; 80053; 83690; 84484; 85025; 93005; 96372; 96374; 96375; 96376; C9113; G0378; J1650; J2270; J2405; J7050; J7120; U0003; U0005

== ENCOUNTER 2021-05-28 19:22 | Inpatient (IN) | payer MEDICARE ==
[2021-05-28] MEDS ORDERED: Digoxin 0.5 MG/2 ML AMP ONE (19:33)
[2021-05-28] MEDS ORDERED: Diltiazem 125 MG/25 ML ONE (19:49)
[2021-05-28 20:20] LABS: #Basophils 0.1 thou/uL (0.0-0.2); #Eosinphils 0.2 thou/uL (0.0-0.7); #Lymphocytes 2.5 thou/uL (1.20-3.40); #Monocytes 1.7 thou/uL (0.11-0.59); #Neutrophils 9.3 thou/uL (1.40-6.50); %Basophils 0.4 % (0.0-1.0); %Eosinophils 1.6 % (0.0-10.0); %Lymphocytes 18.3 % (21.0-51.0); %Monocytes 12.3 % (0.0-10.0); %Neutrophils 67.4 % (42.0-75.0); Hemoglobin 11.9 g/dL (14.0-18.0); Mean Corpuscular HGB CONC 32.5 g/dL (32.0-36.0); Mean Corpuscular Volume 98.5 fL (78.0-98.0); Mean Platelet Volume 7.4 fL (7.4-10.4); Platelet Count 412 thou/uL (130-400); Red Blood Cell (RBC) Count 3.71 mill/uL (4.70-6.10); White Blood Cell (WBC) Count 13.8 thou/uL (4.8-10.8)
[2021-05-28 20:31] LABS: INR-International Normal Ratio 1.1; PTT 37.1 sec (22.9-36.1); Prothrombin Time 14.8 sec (12.0-14.7)
[2021-05-28 20:43] LABS: ALT (SGPT) 34 U/L (8-55); AST (SGOT) 35 U/L (5-34); Albumin 3.3 g/dL (3.4-4.8); Alkaline Phosphatase 84 U/L (40-110); Anion Gap 16 mmol/L (10-20); BUN (Urea Nitrogen) 16 mg/dL (8.4-25.7); Bilirubin, Total 0.5 mg/dL (0.2-1.2); Calc. Creatinine Clearance 0 mL/min (70-130); Calcium 8.6 mg/dL (7.8-10.44); Carbon Dioxide 25 mmol/L (23-31); Chloride 99 mmol/L (98-107); Globulin 3.2 g/dL (2.4-3.5); Glucose 107 mg/dL (83-110); Potassium 4.9 mmol/L (3.5-5.1); Protein, Total 6.5 g/dL (5.8-8.1); Sodium 135 mmol/L (136-145)
[2021-05-28] MEDS ORDERED: Enoxaparin Sodium 60 MG/0.6 ML SYRINGE SC SCH (21:30)
[2021-05-28] MEDS ORDERED: Ondansetron PF 4 MG/2 ML Vial IVP PRN (21:52)
[2021-05-28] MEDS ORDERED: Dextrose 5% in Water 1,000 ML IV PRN (21:52)
[2021-05-28] MEDS ORDERED: hydrALAZINE 20 MG/ML VIAL SLOW IVP PRN (21:52)
[2021-05-28] MEDS ORDERED: Dextrose 50% Abboject 50 ML SYRINGE SLOW IVP PRN (21:52)
[2021-05-28] MEDS ORDERED: traMADol HCl 50 MG TAB PO PRN ×2 (21:54)
[2021-05-28] MEDS ORDERED: Cyclobenzaprine 10 MG TAB PO PRN (21:54)
[2021-05-28] MEDS ORDERED: Ibuprofen 600 MG TAB PO PRN (21:54)
[2021-05-28] MEDS ORDERED: Diltiazem 125 MG in Sodium Chloride 0.9% 100 ML IVPB SCH (22:00)
[2021-05-28] MEDS ORDERED: Ibuprofen 200 MG TAB PO PRN (22:00)
[2021-05-28 23:04] LABS: Phosphorus 2.2 mg/dL (2.3-4.7)
[2021-05-28 23:05] LABS: Alcohol Less than 10 mg/dL (Less than 10)
[2021-05-28] MEDS ORDERED: Enoxaparin Sodium 60 MG/0.6 ML SYRINGE ONE (23:17)
[2021-05-28] MEDS ORDERED: Furosemide 20 MG/2 ML VIAL SLOW IVP SCH (23:59)
[2021-05-29] MEDS: Acetaminophen 500 MG TAB PO SCH ×5 (02:03→23:06)
[2021-05-29] MEDS ORDERED: Lactated Ringer's 250 ML IV SCH (02:15)
[2021-05-29 05:20] LABS: #Eosinphils 0.2 thou/uL (0.0-0.7); #Lymphocytes 3.2 thou/uL (1.20-3.40); #Monocytes 1.5 thou/uL (0.11-0.59); #Neutrophils 6.6 thou/uL (1.40-6.50); %Basophils 0.3 % (0.0-1.0); %Eosinophils 1.7 % (0.0-10.0); %Lymphocytes 27.6 % (21.0-51.0); %Neutrophils 57.3 % (42.0-75.0); Hemoglobin 11.8 g/dL (14.0-18.0); Mean Corpuscular HGB CONC 32.6 g/dL (32.0-36.0); Mean Corpuscular Hemoglobin 32.2 pg (27.0-31.0); Mean Corpuscular Volume 98.9 fL (78.0-98.0); Mean Platelet Volume 7.4 fL (7.4-10.4); Platelet Count 432 thou/uL (130-400); RBC Distribution Width 13.2 % (11.5-14.5); Red Blood Cell (RBC) Count 3.66 mill/uL (4.70-6.10); White Blood Cell (WBC) Count 11.6 thou/uL (4.8-10.8)
[2021-05-29] MEDS ORDERED: PHOS-NAK 1 PKT PACK PO SCH (05:45)
[2021-05-29 06:14] LABS: Anion Gap 12 mmol/L (10-20); BUN (Urea Nitrogen) 13 mg/dL (8.4-25.7); Calc. Creatinine Clearance 62 mL/min (70-130); Calcium 8.8 mg/dL (7.8-10.44); Carbon Dioxide 26 mmol/L (23-31); Chloride 102 mmol/L (98-107); Glucose 103 mg/dL (83-110); Magnesium 2.1 mg/dL (1.6-2.6); Phosphorus 2.7 mg/dL (2.3-4.7); Potassium 4.4 mmol/L (3.5-5.1); Sodium 136 mmol/L (136-145)
[2021-05-29] MEDS ORDERED: Acetaminophen ER (8hr) 650 MG TAB PO PRN (06:42)
[2021-05-29] MEDS: Gabapentin 100 MG CAP PO SCH ×3 (08:52→21:29)
[2021-05-29] MEDS: Apixaban 2.5 MG TAB PO SCH ×2 (08:52→21:29)
[2021-05-29] MEDS: Senokot S 8.6-50 MG TAB PO SCH ×2 (08:52→21:30)
[2021-05-29] MEDS: Hydroxychloroquine Sulfate 200 MG TAB PO SCH (08:53)
[2021-05-29] MEDS: Famotidine 20 MG TAB PO SCH ×2 (08:53→21:30)
[2021-05-29] MEDS: Polyethylene Glycol 3350 17 GM Packet PO SCH (08:54)
[2021-05-29] MEDS ORDERED: Methotrexate Sodium 2.5 MG TAB PO SCH (09:00)
[2021-05-29 12:52] LABS: SARS-CoV-2 PCR by NAA Not Detected (NotDetected)
[2021-05-29] MEDS ORDERED: Digoxin 0.5 MG/2 ML AMP SLOW IVP SCH (15:00)
[2021-05-29] MEDS ORDERED: Amiodarone 450 MG in Dextrose 5% in Water 250 ML IVPB SCH (17:00)
[2021-05-29 17:19] LABS: ALT (SGPT) 27 U/L (8-55); AST (SGOT) 21 U/L (5-34); Albumin 3.6 g/dL (3.4-4.8); Alkaline Phosphatase 83 U/L (40-110); Bilirubin, Direct 0.3 mg/dL (0.1-0.3); Bilirubin, Total 0.5 mg/dL (0.2-1.2); Protein, Total 7.3 g/dL (5.8-8.1)
[2021-05-30 05:18] LABS: #Basophils 0.1 thou/uL (0.0-0.2); #Eosinphils 0.4 thou/uL (0.0-0.7); #Lymphocytes 2.7 thou/uL (1.20-3.40); #Monocytes 1.3 thou/uL (0.11-0.59); #Neutrophils 5.2 thou/uL (1.40-6.50); %Basophils 0.8 % (0.0-1.0); %Eosinophils 4.3 % (0.0-10.0); %Lymphocytes 28.2 % (21.0-51.0); %Monocytes 13.3 % (0.0-10.0); %Neutrophils 53.5 % (42.0-75.0); Hemoglobin 11.4 g/dL (14.0-18.0); Mean Corpuscular HGB CONC 31.1 g/dL (32.0-36.0); Mean Corpuscular Hemoglobin 30.7 pg (27.0-31.0); Mean Corpuscular Volume 98.6 fL (78.0-98.0); Mean Platelet Volume 7.2 fL (7.4-10.4); Platelet Count 422 thou/uL (130-400); RBC Distribution Width 13.3 % (11.5-14.5); Red Blood Cell (RBC) Count 3.72 mill/uL (4.70-6.10); White Blood Cell (WBC) Count 9.7 thou/uL (4.8-10.8)
[2021-05-30 05:44] LABS: Anion Gap 12 mmol/L (10-20); BUN (Urea Nitrogen) 12 mg/dL (8.4-25.7); Calc. Creatinine Clearance 60 mL/min (70-130); Calcium 9.1 mg/dL (7.8-10.44); Carbon Dioxide 28 mmol/L (23-31); Chloride 101 mmol/L (98-107); Glucose 98 mg/dL (83-110); Phosphorus 3.6 mg/dL (2.3-4.7); Potassium 4.5 mmol/L (3.5-5.1); Sodium 136 mmol/L (136-145)
[2021-05-30] MEDS: Acetaminophen 500 MG TAB PO SCH ×2 (05:52→12:07)
[2021-05-30 06:29] VITALS: BMI 18.6
[2021-05-30] MEDS ORDERED: Digoxin 0.125 MG TAB PO SCH (09:00)
[2021-05-30] MEDS: Famotidine 20 MG TAB PO SCH (09:27)
[2021-05-30] MEDS: Hydroxychloroquine Sulfate 200 MG TAB PO SCH (09:27)
[2021-05-30] MEDS: Apixaban 2.5 MG TAB PO SCH (09:28)
[2021-05-30] MEDS: Polyethylene Glycol 3350 17 GM Packet PO SCH (09:30)
[2021-05-30] MEDS: Senokot S 8.6-50 MG TAB PO SCH (09:31)
[2021-05-30] MEDS: Gabapentin 100 MG CAP PO SCH (12:07)
[2021-05-30 12:14] VITALS: BP 131/66; TEMP 97.6
== END 2021-05-30 15:30 | disposition home or self-care (01) | DRG 308 ==
LOC: ERS 19:22 → 2NO 21:55
PROVIDERS: ADMIT Emergency Medicine; ATTEND Surgery
DX: I48.0 Paroxysmal atrial fibrillation (principal); J96.01 Acute respiratory failure with hypoxia; E43 Unspecified severe protein-calorie malnutrition; K85.90 Acute pancreatitis without necrosis or infection, unspecified; J90 Pleural effusion, not elsewhere classified; S22.41XA Multiple fractures of ribs, right side, initial encounter for closed fracture; I31.3 Pericardial effusion (noninflammatory); R64 Cachexia; Z68.1 Body mass index [BMI] 19.9 or less, adult; E87.1 Hypo-osmolality and hyponatremia; Z20.822 Contact with and (suspected) exposure to COVID-19; I48.3 Typical atrial flutter; D64.9 Anemia, unspecified; R53.1 Weakness; R29.6 Repeated falls; I10 Essential (primary) hypertension; I44.30 Unspecified atrioventricular block; W18.30XA Fall on same level, unspecified, initial encounter; M06.9 Rheumatoid arthritis, unspecified; Z90.89 Acquired absence of other organs; Z98.890 Other specified postprocedural states
CPT/HCPCS: 36415; 70450; 71045; 74177; 80048; 80053; 80076; 80162; 80307; 82274; 83690; 83735; 83880; 84100; 84443; 84484; 85025; 85610; 85730; 93005; 93010; 93306; 96372; 96374; 96375; 96376; C9113; G0378; G0390; J1160; J1650; J1940; J2270; J2405; J7050; J7120; Q9967; U0003; U0005

== ENCOUNTER 2021-06-22 15:29 | Inpatient (IN) | payer MEDICARE ==
[2021-06-22] MEDS ORDERED: Metoprolol Tartrate 5 MG/5 ML VIAL ONE ×3 (15:56→16:46)
[2021-06-22 16:16] LABS: #Basophils 0.1 thou/uL (0.0-0.2); #Eosinphils 0.1 thou/uL (0.0-0.7); #Lymphocytes 2.3 thou/uL (1.20-3.40); #Monocytes 0.8 thou/uL (0.11-0.59); %Basophils 0.7 % (0.0-1.0); %Eosinophils 1.1 % (0.0-10.0); %Monocytes 8.1 % (0.0-10.0); %Neutrophils 65.1 % (42.0-75.0); Mean Corpuscular Hemoglobin 31.8 pg (27.0-31.0); Mean Corpuscular Volume 96.5 fL (78.0-98.0); Mean Platelet Volume 8.5 fL (7.4-10.4); Platelet Count 481 thou/uL (130-400); RBC Distribution Width 12.7 % (11.5-14.5); Red Blood Cell (RBC) Count 4.07 mill/uL (4.70-6.10); White Blood Cell (WBC) Count 9.2 thou/uL (4.8-10.8)
[2021-06-22 16:36] LABS: ALT (SGPT) 32 U/L (8-55); AST (SGOT) 25 U/L (5-34); Albumin 4.5 g/dL (3.4-4.8); Alkaline Phosphatase 96 U/L (40-110); Anion Gap 18 mmol/L (10-20); BUN (Urea Nitrogen) 20 mg/dL (8.4-25.7); Bilirubin, Total 0.6 mg/dL (0.2-1.2); Calc. Creatinine Clearance 0 mL/min (70-130); Carbon Dioxide 25 mmol/L (23-31); Chloride 100 mmol/L (98-107); Globulin 4.6 g/dL (2.4-3.5); Glucose 107 mg/dL (83-110); Potassium 5.4 mmol/L (3.5-5.1); Protein, Total 9.1 g/dL (5.8-8.1); Sodium 138 mmol/L (136-145)
[2021-06-22] MEDS ORDERED: Diltiazem 125 MG in Sodium Chloride 0.9% 100 ML IVPB SCH (19:15)
[2021-06-22 19:24] VITALS: BMI 18.5
[2021-06-22 19:55] LABS: Magnesium 2.5 mg/dL (1.6-2.6); Phosphorus 3.5 mg/dL (2.3-4.7)
[2021-06-22] MEDS: Apixaban 2.5 MG TAB PO SCH (20:46)
[2021-06-22] MEDS ORDERED: FLU VACC QS2021-22(65YR UP)/PF 240 MCG/0.7 ML SYRINGE IM ONE (21:15)
[2021-06-22 23:55] LABS: Anion Gap 17 mmol/L (10-20); BUN (Urea Nitrogen) 17 mg/dL (8.4-25.7); Calc. Creatinine Clearance 55 mL/min (70-130); Calcium 8.6 mg/dL (7.8-10.44); Carbon Dioxide 19 mmol/L (23-31); Chloride 105 mmol/L (98-107); Glucose 111 mg/dL (83-110); Potassium 4.7 mmol/L (3.5-5.1); Sodium 136 mmol/L (136-145)
[2021-06-23] MEDS ORDERED: Lactated Ringer's 1,000 ML IV SCH (00:30)
[2021-06-23] MEDS: Acetaminophen 325 MG TAB PO PRN ×4 (05:09→21:57)
[2021-06-23 06:19] LABS: #Basophils 0.1 thou/uL (0.0-0.2); #Eosinphils 0.2 thou/uL (0.0-0.7); #Lymphocytes 3.2 thou/uL (1.20-3.40); #Monocytes 0.9 thou/uL (0.11-0.59); #Neutrophils 5.8 thou/uL (1.40-6.50); %Basophils 0.7 % (0.0-1.0); %Eosinophils 1.8 % (0.0-10.0); %Lymphocytes 31.5 % (21.0-51.0); %Monocytes 8.9 % (0.0-10.0); %Neutrophils 57.1 % (42.0-75.0); Mean Corpuscular HGB CONC 33.6 g/dL (32.0-36.0); Mean Corpuscular Hemoglobin 32.3 pg (27.0-31.0); Mean Corpuscular Volume 96.1 fL (78.0-98.0); Platelet Count 437 thou/uL (130-400); RBC Distribution Width 12.7 % (11.5-14.5); Red Blood Cell (RBC) Count 3.71 mill/uL (4.70-6.10); White Blood Cell (WBC) Count 10.2 thou/uL (4.8-10.8)
[2021-06-23 06:49] LABS: Anion Gap 17 mmol/L (10-20); BUN (Urea Nitrogen) 17 mg/dL (8.4-25.7); Calc. Creatinine Clearance 55 mL/min (70-130); Calcium 9.5 mg/dL (7.8-10.44); Carbon Dioxide 23 mmol/L (23-31); Chloride 105 mmol/L (98-107); Glucose 85 mg/dL (83-110); Sodium 140 mmol/L (136-145)
[2021-06-23] MEDS: Polyethylene Glycol 3350 17 GM Packet PO SCH (09:19)
[2021-06-23] MEDS: Apixaban 2.5 MG TAB PO SCH ×2 (09:19→22:00)
[2021-06-23] MEDS: Hydrocortisone 1% Cream 30 GM TUBE TOP SCH ×2 (09:20→22:39)
[2021-06-23 12:10] LABS: SARS-CoV-2 PCR by NAA Not Detected (NotDetected)
[2021-06-23] MEDS: Flecainide 50 MG TAB PO SCH (21:55)
[2021-06-24 04:50] LABS: #Eosinphils 0.1 thou/uL (0.0-0.7); #Lymphocytes 2.2 thou/uL (1.20-3.40); #Monocytes 0.7 thou/uL (0.11-0.59); #Neutrophils 4.8 thou/uL (1.40-6.50); %Basophils 0.6 % (0.0-1.0); %Eosinophils 1.8 % (0.0-10.0); %Lymphocytes 28.2 % (21.0-51.0); %Monocytes 8.8 % (0.0-10.0); %Neutrophils 60.6 % (42.0-75.0); Hemoglobin 10.9 g/dL (14.0-18.0); Mean Corpuscular HGB CONC 33.1 g/dL (32.0-36.0); Mean Corpuscular Hemoglobin 31.6 pg (27.0-31.0); Mean Corpuscular Volume 95.6 fL (78.0-98.0); Mean Platelet Volume 8.6 fL (7.4-10.4); Platelet Count 379 thou/uL (130-400); RBC Distribution Width 12.8 % (11.5-14.5); Red Blood Cell (RBC) Count 3.46 mill/uL (4.70-6.10); White Blood Cell (WBC) Count 7.9 thou/uL (4.8-10.8)
[2021-06-24 05:19] LABS: Anion Gap 16 mmol/L (10-20); BUN (Urea Nitrogen) 15 mg/dL (8.4-25.7); Calc. Creatinine Clearance 57 mL/min (70-130); Carbon Dioxide 21 mmol/L (23-31); Chloride 108 mmol/L (98-107); Glucose 87 mg/dL (83-110); Potassium 4.5 mmol/L (3.5-5.1); Sodium 140 mmol/L (136-145)
[2021-06-24] MEDS: Hydrocortisone 1% Cream 30 GM TUBE TOP SCH ×2 (09:55→20:52)
[2021-06-24] MEDS: Acetaminophen 325 MG TAB PO PRN ×2 (09:55→19:41)
[2021-06-24] MEDS: Apixaban 2.5 MG TAB PO SCH ×2 (09:56→20:52)
[2021-06-24] MEDS: Flecainide 50 MG TAB PO SCH ×2 (09:56→20:50)
[2021-06-24] MEDS: Polyethylene Glycol 3350 17 GM Packet PO SCH (09:56)
[2021-06-24 13:28] LABS: Troponin I 0.015 ng/mL (< 0.028)
[2021-06-24 15:30] LABS: Troponin I 0.023 ng/mL (< 0.028)
[2021-06-24 17:38] LABS: Troponin I 0.016 ng/mL (< 0.028)
[2021-06-25] MEDS: Acetaminophen 325 MG TAB PO PRN ×4 (00:24→23:08)
[2021-06-25 04:55] LABS: #Eosinphils 0.2 thou/uL (0.0-0.7); #Lymphocytes 2.3 thou/uL (1.20-3.40); #Monocytes 0.6 thou/uL (0.11-0.59); #Neutrophils 4.6 thou/uL (1.40-6.50); %Basophils 0.6 % (0.0-1.0); %Eosinophils 2.2 % (0.0-10.0); %Lymphocytes 29.9 % (21.0-51.0); %Monocytes 7.8 % (0.0-10.0); %Neutrophils 59.5 % (42.0-75.0); Hemoglobin 11.2 g/dL (14.0-18.0); Mean Corpuscular HGB CONC 32.4 g/dL (32.0-36.0); Mean Corpuscular Hemoglobin 30.9 pg (27.0-31.0); Mean Corpuscular Volume 95.4 fL (78.0-98.0); Mean Platelet Volume 8.4 fL (7.4-10.4); Platelet Count 428 thou/uL (130-400); RBC Distribution Width 13.1 % (11.5-14.5); Red Blood Cell (RBC) Count 3.63 mill/uL (4.70-6.10); White Blood Cell (WBC) Count 7.8 thou/uL (4.8-10.8)
[2021-06-25 05:09] LABS: Anion Gap 14 mmol/L (10-20); BUN (Urea Nitrogen) 11 mg/dL (8.4-25.7); Calc. Creatinine Clearance 57 mL/min (70-130); Carbon Dioxide 22 mmol/L (23-31); Chloride 106 mmol/L (98-107); Glucose 90 mg/dL (83-110); Potassium 4.2 mmol/L (3.5-5.1); Sodium 138 mmol/L (136-145)
[2021-06-25] MEDS: Polyethylene Glycol 3350 17 GM Packet PO SCH (11:33)
[2021-06-25] MEDS: Flecainide 50 MG TAB PO SCH ×2 (11:36→21:45)
[2021-06-25] MEDS: Hydrocortisone 1% Cream 30 GM TUBE TOP SCH ×2 (11:36→21:45)
[2021-06-25] MEDS: Apixaban 2.5 MG TAB PO SCH ×2 (11:37→21:45)
[2021-06-25] MEDS ORDERED: ADENOSINE 60 MG/20 ML VIAL ONE (12:53)
[2021-06-25] MEDS ORDERED: Communication Order-Pharmacy FS SCH (16:30)
[2021-06-26] MEDS ORDERED: Metoprolol Tartrate 5 MG/5 ML VIAL IVP SCH (05:00)
[2021-06-26] MEDS: Acetaminophen 325 MG TAB PO PRN ×2 (05:23→21:35)
[2021-06-26] MEDS: Apixaban 2.5 MG TAB PO SCH ×2 (10:17→21:34)
[2021-06-26] MEDS: Flecainide 50 MG TAB PO SCH ×2 (10:17→21:33)
[2021-06-26] MEDS: Hydrocortisone 1% Cream 30 GM TUBE TOP SCH ×2 (10:20→22:26)
[2021-06-26] MEDS: Polyethylene Glycol 3350 17 GM Packet PO SCH (10:20)
[2021-06-27 00:16] VITALS: BP 114/71; TEMP 97.8
== END 2021-06-27 02:20 | disposition left against medical advice (07) | DRG 308 ==
LOC: ERS 15:29 → 2NO 18:55
PROVIDERS: ADMIT Student in an Organized Health Care Education/Training Program; ATTEND Student in an Organized Health Care Education/Training Program
DX: I48.0 Paroxysmal atrial fibrillation (principal); E43 Unspecified severe protein-calorie malnutrition; Z68.1 Body mass index [BMI] 19.9 or less, adult; I48.92 Unspecified atrial flutter; Z20.822 Contact with and (suspected) exposure to COVID-19; I10 Essential (primary) hypertension; M06.9 Rheumatoid arthritis, unspecified; Z60.2 Problems related to living alone; D64.9 Anemia, unspecified; M19.90 Unspecified osteoarthritis, unspecified site; K59.00 Constipation, unspecified; H91.90 Unspecified hearing loss, unspecified ear; E87.5 Hyperkalemia; Z79.899 Other long term (current) drug therapy; Z90.89 Acquired absence of other organs; Z79.891 Long term (current) use of opiate analgesic
CPT/HCPCS: 36415; 71045; 78452; 80048; 80053; 83735; 83880; 84100; 84443; 84484; 85025; 93005; 93010; 93017; 96374; 96376; A9500; J0153; J3490; J7120; U0003; U0005

== ENCOUNTER 2021-06-27 10:00 | Inpatient (IN) | payer MEDICARE ==
[2021-06-27] MEDS ORDERED: Magnesium 2 GM/50 ML BAG (IN WATER) ONE (11:20)
[2021-06-27] MEDS ORDERED: Digoxin 0.5 MG/2 ML AMP ONE (11:22)
[2021-06-27 11:36] LABS: Hemoglobin 11.5 g/dL (14.0-18.0); Mean Corpuscular HGB CONC 33.7 g/dL (32.0-36.0); Mean Corpuscular Hemoglobin 32.5 pg (27.0-31.0); Mean Corpuscular Volume 96.4 fL (78.0-98.0); Mean Platelet Volume 8.7 fL (7.4-10.4); Platelet Count 307 thou/uL (130-400); RBC Distribution Width 13.4 % (11.5-14.5); Red Blood Cell (RBC) Count 3.53 mill/uL (4.70-6.10); White Blood Cell (WBC) Count 11.2 thou/uL (4.8-10.8)
[2021-06-27 11:48] LABS: SARS-CoV-2 NAA Rapid Test Not Detected (NotDetected)
[2021-06-27 11:54] LABS: ALT (SGPT) 13 U/L (8-55); AST (SGOT) 15 U/L (5-34); Albumin 3.5 g/dL (3.4-4.8); Alkaline Phosphatase 81 U/L (40-110); Anion Gap 16 mmol/L (10-20); BUN (Urea Nitrogen) 9 mg/dL (8.4-25.7); Bilirubin, Total 0.6 mg/dL (0.2-1.2); CK (CPK) 73 U/L (30-200); Calc. Creatinine Clearance 0 mL/min (70-130); Calcium 8.9 mg/dL (7.8-10.44); Carbon Dioxide 19 mmol/L (23-31); Chloride 101 mmol/L (98-107); Globulin 3.3 g/dL (2.4-3.5); Glucose 97 mg/dL (83-110); Magnesium 1.8 mg/dL (1.6-2.6); Potassium 4.1 mmol/L (3.5-5.1); Protein, Total 6.8 g/dL (5.8-8.1); Sodium 132 mmol/L (136-145)
[2021-06-27 11:54] LABS: INR-International Normal Ratio 1.3; PTT 27.8 sec (22.9-36.1); Prothrombin Time 15.9 sec (12.0-14.7)
[2021-06-27 12:11] LABS: Band 1 % (5-11); Lymphocytes 19 % (21-51); MDiff Complete? YES; Monocytes 10 % (0-10); Neutrophil 70 % (42-75); RBC Morphology Normal
[2021-06-27] MEDS ORDERED: Acetaminophen 650 MG Suppository PR PRN (13:30)
[2021-06-27] MEDS ORDERED: Acetaminophen 325 MG TAB PO PRN (13:30)
[2021-06-27] MEDS ORDERED: Diltiazem 125 MG in Sodium Chloride 0.9% 100 ML IVPB SCH (14:00)
[2021-06-27] MEDS ORDERED: Diltiazem 125 MG/25 ML ONE (14:01)
[2021-06-27 18:02] VITALS: BMI 17.9
[2021-06-27] MEDS ORDERED: FLU VACC QS2021-22(65YR UP)/PF 240 MCG/0.7 ML SYRINGE IM ONE (18:30)
[2021-06-27] MEDS: Flecainide 50 MG TAB PO SCH (21:35)
[2021-06-27] MEDS: Apixaban 2.5 MG TAB PO SCH (21:35)
[2021-06-28 05:55] LABS: Anion Gap 19 mmol/L (10-20); BUN (Urea Nitrogen) 13 mg/dL (8.4-25.7); Calc. Creatinine Clearance 53 mL/min (70-130); Carbon Dioxide 18 mmol/L (23-31); Chloride 104 mmol/L (98-107); Glucose 95 mg/dL (83-110); Potassium 4.7 mmol/L (3.5-5.1); Sodium 136 mmol/L (136-145)
[2021-06-28 06:13] LABS: #Eosinphils 0.2 thou/uL (0.0-0.7); #Lymphocytes 2.8 thou/uL (1.20-3.40); #Monocytes 1.3 thou/uL (0.11-0.59); #Neutrophils 5.4 thou/uL (1.40-6.50); %Basophils 0.3 % (0.0-1.0); %Eosinophils 1.8 % (0.0-10.0); %Lymphocytes 28.7 % (21.0-51.0); %Monocytes 13.3 % (0.0-10.0); %Neutrophils 55.9 % (42.0-75.0); Hemoglobin 12.3 g/dL (14.0-18.0); Mean Corpuscular HGB CONC 32.6 g/dL (32.0-36.0); Mean Corpuscular Volume 95.2 fL (78.0-98.0); Mean Platelet Volume 8.2 fL (7.4-10.4); Platelet Count 515 thou/uL (130-400); RBC Distribution Width 13.5 % (11.5-14.5); Red Blood Cell (RBC) Count 3.98 mill/uL (4.70-6.10); White Blood Cell (WBC) Count 9.6 thou/uL (4.8-10.8)
[2021-06-28] MEDS ORDERED: Sodium Chloride 0.9% 500 ML IVPB SCH (07:00)
[2021-06-28] MEDS: Flecainide 50 MG TAB PO SCH ×2 (09:35→20:13)
[2021-06-28] MEDS: Diltiazem 125 MG in Sodium Chloride 0.9% 100 ML IVPB SCH (09:39)
[2021-06-28] MEDS: Acetaminophen ER (8hr) 650 MG TAB PO PRN (11:07)
[2021-06-28] MEDS ORDERED: Heparin 10,000 UNITS/ 10 ML VIAL ONE (14:06)
[2021-06-28] MEDS ORDERED: Lidocaine 1% (PF) 30 ML VIAL ONE (14:06)
[2021-06-28] MEDS ORDERED: Heparin 25,000 units/D5W 0 ML ONE (14:06)
[2021-06-28] MEDS ORDERED: Menthol/Camphor Lotion 222 ml Bottle TOP PRN (16:03)
[2021-06-28] MEDS ORDERED: Methyl Salicylate/Menthol 85 GM TUBE TOP PRN ×2 (17:47→18:00)
[2021-06-28] MEDS: Apixaban 2.5 MG TAB PO SCH (20:12)
[2021-06-29] MEDS: Diltiazem 125 MG in Sodium Chloride 0.9% 100 ML IVPB SCH (03:43)
[2021-06-29] MEDS: Flecainide 50 MG TAB PO SCH ×2 (09:33→20:35)
[2021-06-29] MEDS: Acetaminophen ER (8hr) 650 MG TAB PO PRN (11:53)
[2021-06-29] MEDS ORDERED: PROPOFOL 40 ML ONE (12:45)
[2021-06-29] MEDS ORDERED: ePHEDrine 50 MG/ML VIAL ONE (12:50)
[2021-06-29] MEDS ORDERED: PHENYLEPHRINE-NS 100 MCG/ML 10 ML SYRINGE ONE (12:50)
[2021-06-29] MEDS ORDERED: PROPOFOL 200 MG/20 ML VIAL ONE (12:50)
[2021-06-29] MEDS: Apixaban 2.5 MG TAB PO SCH ×2 (15:00→20:35)
[2021-06-29] MEDS ORDERED: Acetaminophen 325 MG TAB PO PRN (23:13)
[2021-06-30 08:22] LABS: Hemoglobin 11.3 g/dL (14.0-18.0); Mean Corpuscular Hemoglobin 31.7 pg (27.0-31.0); Mean Corpuscular Volume 96.1 fL (78.0-98.0); Mean Platelet Volume 7.9 fL (7.4-10.4); Platelet Count 380 thou/uL (130-400); RBC Distribution Width 13.3 % (11.5-14.5); Red Blood Cell (RBC) Count 3.56 mill/uL (4.70-6.10); White Blood Cell (WBC) Count 8.4 thou/uL (4.8-10.8)
[2021-06-30 08:45] LABS: Band 1 % (5-11); Eosinophils 4 % (0-10); Lymphocytes 24 % (21-51); MDiff Complete? YES; Monocytes 13 % (0-10); Neutrophil 57 % (42-75); Platelet Morphology Comment Appears Adequate; Polychromasia SLIGHT = 2-3 cells (100X) (0-2/hpf)
[2021-06-30] MEDS: Apixaban 2.5 MG TAB PO SCH (09:31)
[2021-06-30] MEDS: Flecainide 50 MG TAB PO SCH (09:31)
[2021-06-30 15:57] VITALS: BP 128/80; TEMP 97.6
[2021-07-04] MEDS ORDERED: Methotrexate Sodium 2.5 MG TAB PO SCH (09:00)
== END 2021-06-30 16:36 | disposition home or self-care (01) | DRG 310 ==
LOC: ERS 10:00 → ERHOLD 12:40 → 2NO 17:39
PROVIDERS: ADMIT Family Medicine; ATTEND Family Medicine
PROC: 5A2204Z Restoration of Cardiac Rhythm, Single (ICD-10-PCS; principal; 2021-06-29)
PROC: B246ZZ4 Ultrasonography of Right and Left Heart, Transesophageal (ICD-10-PCS; 2021-06-29)
DX: I48.92 Unspecified atrial flutter (principal); I10 Essential (primary) hypertension; M06.9 Rheumatoid arthritis, unspecified; D64.9 Anemia, unspecified; K59.00 Constipation, unspecified; M19.90 Unspecified osteoarthritis, unspecified site; I48.0 Paroxysmal atrial fibrillation; S09.90XA Unspecified injury of head, initial encounter; I99.8 Other disorder of circulatory system; Z20.822 Contact with and (suspected) exposure to COVID-19; W19.XXXA Unspecified fall, initial encounter; Y92.003 Bedroom of unspecified non-institutional (private) residence as the place of occurrence of the external cause; Z90.49 Acquired absence of other specified parts of digestive tract; Z87.891 Personal history of nicotine dependence
CPT/HCPCS: 36415; 70450; 71045; 80048; 80053; 82550; 83605; 83735; 83880; 84443; 84484; 85025; 85610; 85730; 87040; 92960; 93005; 93010; 93312; J1160; J1644; J2001; J2704; J3475; J3490; J7030; U0002

== ENCOUNTER 2021-09-06 08:37 | Inpatient (IN) | payer MEDICARE ==
[2021-09-06 09:38] LABS: #Eosinphils 0.1 thou/uL (0.0-0.7); #Lymphocytes 1.3 thou/uL (1.20-3.40); #Monocytes 1.3 thou/uL (0.11-0.59); #Neutrophils 11.3 thou/uL (1.40-6.50); %Basophils 0.2 % (0.0-1.0); %Eosinophils 0.4 % (0.0-10.0); %Lymphocytes 9.4 % (21.0-51.0); Hemoglobin 13.2 g/dL (14.0-18.0); Mean Corpuscular HGB CONC 32.9 g/dL (32.0-36.0); Mean Corpuscular Hemoglobin 30.3 pg (27.0-31.0); Mean Corpuscular Volume 92.2 fL (78.0-98.0); Mean Platelet Volume 6.9 fL (7.4-10.4); Platelet Count 383 thou/uL (130-400); RBC Distribution Width 15.9 % (11.5-14.5); Red Blood Cell (RBC) Count 4.35 mill/uL (4.70-6.10)
[2021-09-06 09:50] LABS: INR-International Normal Ratio 1.1; Prothrombin Time 13.9 sec (12.0-14.7)
[2021-09-06 09:51] LABS: PTT 40.4 sec (22.9-36.1)
[2021-09-06 10:00] LABS: ALT (SGPT) 20 U/L (8-55); AST (SGOT) 19 U/L (5-34); Albumin 4.1 g/dL (3.4-4.8); Alkaline Phosphatase 99 U/L (40-110); Anion Gap 15 mmol/L (10-20); BUN (Urea Nitrogen) 11 mg/dL (8.4-25.7); Bilirubin, Total 0.7 mg/dL (0.2-1.2); Calc. Creatinine Clearance 0 mL/min (70-130); Calcium 9.4 mg/dL (7.8-10.44); Carbon Dioxide 23 mmol/L (23-31); Chloride 94 mmol/L (98-107); Glucose 111 mg/dL (83-110); Protein, Total 8.1 g/dL (5.8-8.1); Sodium 128 mmol/L (136-145)
[2021-09-06] MEDS ORDERED: Morphine 4 MG/ML VIAL ONE (10:23)
[2021-09-06] MEDS ORDERED: Dextrose 50% Abboject 50 ML SYRINGE SLOW IVP PRN (12:21)
[2021-09-06] MEDS ORDERED: hydrALAZINE 20 MG/ML VIAL SLOW IVP PRN (12:21)
[2021-09-06] MEDS ORDERED: Dextrose 5% in Water 1,000 ML IV PRN (12:21)
[2021-09-06] MEDS ORDERED: Ondansetron PF 4 MG/2 ML Vial IVP PRN (12:21)
[2021-09-06] MEDS ORDERED: Morphine 4 MG/ML VIAL SLOW IVP PRN ×2 (12:21→12:50)
[2021-09-06] MEDS ORDERED: traMADol HCl 50 MG TAB PO PRN (12:35)
[2021-09-06] MEDS ORDERED: Cyclobenzaprine 10 MG TAB PO PRN (12:35)
[2021-09-06] MEDS ORDERED: Ibuprofen 800 MG TAB PO PRN (12:35)
[2021-09-06] MEDS ORDERED: Acetaminophen 500 MG TAB PO SCH (13:00)
[2021-09-06] MEDS ORDERED: traMADol HCl 50 MG TAB PO SCH (13:00)
[2021-09-06] MEDS ORDERED: traMADol HCl 50 MG TAB ONE (13:48)
[2021-09-06] MEDS ORDERED: Acetaminophen 500 MG TAB ONE (13:49)
[2021-09-06] MEDS: Sodium Chloride 0.9% 1,000 ML IV SCH ×2 (13:53→21:33)
[2021-09-06 14:02] LABS: Magnesium 1.9 mg/dL (1.6-2.6)
[2021-09-06 15:16] LABS: SARS-CoV-2 NAA Rapid Test Not Detected (NotDetected)
[2021-09-06] MEDS ORDERED: ceFAZolin Sodium/D5W 2 GM in Premix Bag 1 BAG IVPB SCH (15:30)
[2021-09-06 16:05] VITALS: BMI 19.8
[2021-09-06] MEDS: traMADol HCl 50 MG TAB PO SCH ×2 (18:01→23:16)
[2021-09-06] MEDS: Acetaminophen 500 MG TAB PO SCH ×2 (18:02→23:17)
[2021-09-06] MEDS: Flecainide 50 MG TAB PO SCH (21:31)
[2021-09-06] MEDS: Famotidine/PF 20 mg/2ml Vial SLOW IVP SCH (21:33)
[2021-09-07] MEDS: Acetaminophen 500 MG TAB PO SCH ×2 (05:02→14:39)
[2021-09-07] MEDS: traMADol HCl 50 MG TAB PO SCH ×2 (05:03→14:39)
[2021-09-07 06:03] LABS: #Basophils 0.1 thou/uL (0.0-0.2); #Eosinphils 0.1 thou/uL (0.0-0.7); #Lymphocytes 1.3 thou/uL (1.20-3.40); #Monocytes 2.4 thou/uL (0.11-0.59); #Neutrophils 13.8 thou/uL (1.40-6.50); %Basophils 0.3 % (0.0-1.0); %Eosinophils 0.8 % (0.0-10.0); %Lymphocytes 7.5 % (21.0-51.0); %Monocytes 13.4 % (0.0-10.0); %Neutrophils 77.9 % (42.0-75.0); Hemoglobin 12.5 g/dL (14.0-18.0); Mean Corpuscular HGB CONC 34.3 g/dL (32.0-36.0); Mean Corpuscular Hemoglobin 31.6 pg (27.0-31.0); Mean Corpuscular Volume 92.1 fL (78.0-98.0); Mean Platelet Volume 6.9 fL (7.4-10.4); Platelet Count 324 thou/uL (130-400); RBC Distribution Width 15.8 % (11.5-14.5); Red Blood Cell (RBC) Count 3.95 mill/uL (4.70-6.10); White Blood Cell (WBC) Count 17.7 thou/uL (4.8-10.8)
[2021-09-07 06:43] LABS: Anion Gap 13 mmol/L (10-20); BUN (Urea Nitrogen) 7 mg/dL (8.4-25.7); Calc. Creatinine Clearance 70 mL/min (70-130); Calcium 8.8 mg/dL (7.8-10.44); Carbon Dioxide 19 mmol/L (23-31); Chloride 100 mmol/L (98-107); Glucose 91 mg/dL (83-110); Magnesium 1.7 mg/dL (1.6-2.6); Potassium 3.8 mmol/L (3.5-5.1); Sodium 128 mmol/L (136-145)
[2021-09-07 07:21] LABS: Phosphorus 1.7 mg/dL (2.3-4.7)
[2021-09-07] MEDS ORDERED: Magnesium Sulfate 3 GM in Sodium Chloride 0.9% 100 ML IV SCH (08:15)
[2021-09-07] MEDS ORDERED: Sodium Phosphate 30 MMOL in Sodium Chloride 0.9% 250 ML 250 ML IVPB SCH (08:15)
[2021-09-07] MEDS: Folic Acid 1 MG TAB PO SCH (09:19)
[2021-09-07] MEDS: Flecainide 50 MG TAB PO SCH ×2 (09:19→21:16)
[2021-09-07] MEDS: Famotidine/PF 20 mg/2ml Vial SLOW IVP SCH ×2 (09:19→21:16)
[2021-09-07] MEDS: Polyethylene Glycol 3350 17 GM Packet PO SCH (09:19)
[2021-09-07] MEDS: Sodium Chloride 0.9% 1,000 ML IV SCH ×2 (10:58→21:15)
[2021-09-07] MEDS ORDERED: Fentanyl 100 MCG/2 ML VIAL ONE ×2 (12:34→14:57)
[2021-09-07] MEDS ORDERED: Phenylephrine 10 MG/ML VIAL ONE ×2 (12:34→13:22)
[2021-09-07] MEDS ORDERED: ceFAZolin 2 GM/DEX 5% 100 ML BAG ONE (12:57)
[2021-09-07] MEDS ORDERED: PROPOFOL 200 MG/20 ML VIAL ONE (13:22)
[2021-09-07] MEDS ORDERED: Glycopyrrolate 0.2 MG/ML 5 ML SYRINGE ONE (13:22)
[2021-09-07] MEDS ORDERED: Rocuronium Bromide 10 MG/ML (10ML VIAL) ONE (13:22)
[2021-09-07] MEDS ORDERED: Lidocaine 1% PF 5 ML VIAL ONE (13:22)
[2021-09-07] MEDS ORDERED: Ondansetron HCl/PF 4 MG/2 ML Vial IVP PRN (15:03)
[2021-09-07] MEDS ORDERED: Promethazine HCl 25 MG/ML VIAL IM PRN (15:03)
[2021-09-07] MEDS ORDERED: Promethazine HCl 25 MG/ML VIAL IVPB PRN (15:03)
[2021-09-07] MEDS: Acetaminophen 325 MG TAB PO SCH ×2 (17:42→23:26)
[2021-09-07] MEDS: Acetaminophen/Codeine 30-300mg Tablet PO SCH ×2 (17:43→23:25)
[2021-09-07] MEDS: ceFAZolin Sodium/D5W 2 GM in Premix Bag 1 BAG IVPB SCH (22:10)
[2021-09-08] MEDS: Acetaminophen 325 MG TAB PO SCH ×4 (05:13→23:30)
[2021-09-08] MEDS: Acetaminophen/Codeine 30-300mg Tablet PO SCH ×4 (05:13→23:30)
[2021-09-08] MEDS: ceFAZolin Sodium/D5W 2 GM in Premix Bag 1 BAG IVPB SCH (05:14)
[2021-09-08] MEDS: Sodium Chloride 0.9% 1,000 ML IV SCH (05:14)
[2021-09-08 06:40] LABS: Mean Corpuscular HGB CONC 33.3 g/dL (32.0-36.0); Mean Corpuscular Hemoglobin 31.3 pg (27.0-31.0); Platelet Count 348 thou/uL (130-400); RBC Distribution Width 16.4 % (11.5-14.5); Red Blood Cell (RBC) Count 3.52 mill/uL (4.70-6.10); White Blood Cell (WBC) Count 14.7 thou/uL (4.8-10.8)
[2021-09-08 06:54] LABS: Anion Gap 18 mmol/L (10-20); BUN (Urea Nitrogen) 22 mg/dL (8.4-25.7); Calc. Creatinine Clearance 23 mL/min (70-130); Calcium 8.3 mg/dL (7.8-10.44); Carbon Dioxide 15 mmol/L (23-31); Chloride 99 mmol/L (98-107); Glucose 102 mg/dL (83-110); Magnesium 2.6 mg/dL (1.6-2.6); Phosphorus 5.3 mg/dL (2.3-4.7); Potassium 3.3 mmol/L (3.5-5.1); Sodium 129 mmol/L (136-145)
[2021-09-08] MEDS ORDERED: Sodium Chloride 0.9% 1,000 ML IV SCH (07:45)
[2021-09-08] MEDS ORDERED: Potassium Chloride 20 MEQ TAB PO SCH (08:00)
[2021-09-08] MEDS ORDERED: Potassium Chloride 20 MEQ in Lactated Ringer's 1,000 ML IV SCH (08:00)
[2021-09-08 08:18] LABS: Band 2 % (5-11); Lymphocytes 13 % (21-51); MDiff Complete? YES; Monocytes 15 % (0-10); Neutrophil 70 % (42-75); Polychromasia SLIGHT = 2-3 cells (100X) (0-2/hpf)
[2021-09-08] MEDS: Folic Acid 1 MG TAB PO SCH (08:57)
[2021-09-08] MEDS: Flecainide 50 MG TAB PO SCH ×2 (08:58→21:26)
[2021-09-08] MEDS: Famotidine/PF 20 mg/2ml Vial SLOW IVP SCH (08:58)
[2021-09-08] MEDS: Tamsulosin HCl 0.4 MG CAP PO SCH (08:58)
[2021-09-08] MEDS: Polyethylene Glycol 3350 17 GM Packet PO SCH (08:58)
[2021-09-08] MEDS ORDERED: Methotrexate Sodium 2.5 MG TAB PO SCH (09:00)
[2021-09-08] MEDS ORDERED: Lactated Ringer's 1,000 ML IV SCH (09:45)
[2021-09-08] MEDS ORDERED: Sodium Chloride 0.45% 500 ML IV SCH ×2 (11:45→19:15)
[2021-09-08] MEDS: Sodium Chloride 1 GM TAB PO SCH ×2 (15:11→21:26)
[2021-09-08 15:36] LABS: Anion Gap 12 mmol/L (10-20); BUN (Urea Nitrogen) 22 mg/dL (8.4-25.7); Calc. Creatinine Clearance 29 mL/min (70-130); Calcium 8.5 mg/dL (7.8-10.44); Carbon Dioxide 23 mmol/L (23-31); Chloride 102 mmol/L (98-107); Glucose 128 mg/dL (83-110); Potassium 3.5 mmol/L (3.5-5.1); Sodium 133 mmol/L (136-145)
[2021-09-09 06:10] LABS: Anion Gap 12 mmol/L (10-20); BUN (Urea Nitrogen) 15 mg/dL (8.4-25.7); Calc. Creatinine Clearance 61 mL/min (70-130); Calcium 8.6 mg/dL (7.8-10.44); Carbon Dioxide 21 mmol/L (23-31); Chloride 103 mmol/L (98-107); Glucose 110 mg/dL (83-110); Phosphorus 1.6 mg/dL (2.3-4.7); Potassium 3.2 mmol/L (3.5-5.1); Sodium 133 mmol/L (136-145)
[2021-09-09] MEDS: Acetaminophen/Codeine 30-300mg Tablet PO SCH ×4 (06:14→23:17)
[2021-09-09] MEDS: Acetaminophen 325 MG TAB PO SCH ×4 (06:14→23:17)
[2021-09-09] MEDS: Sodium Chloride 1 GM TAB PO SCH ×3 (06:14→21:34)
[2021-09-09] MEDS ORDERED: Famotidine/PF 20 mg/2ml Vial SLOW IVP SCH (09:00)
[2021-09-09] MEDS: Flecainide 50 MG TAB PO SCH ×2 (09:20→21:35)
[2021-09-09] MEDS: Folic Acid 1 MG TAB PO SCH (09:20)
[2021-09-09] MEDS: Polyethylene Glycol 3350 17 GM Packet PO SCH (09:21)
[2021-09-09] MEDS: Tamsulosin HCl 0.4 MG CAP PO SCH (09:21)
[2021-09-09] MEDS: Apixaban 2.5 MG TAB PO SCH ×2 (11:00→21:34)
[2021-09-10] MEDS: Acetaminophen/Codeine 30-300mg Tablet PO SCH (05:13)
[2021-09-10] MEDS: Sodium Chloride 1 GM TAB PO SCH (05:13)
[2021-09-10] MEDS: Acetaminophen 325 MG TAB PO SCH (05:13)
[2021-09-10 08:35] VITALS: BP 92/52; TEMP 97.5
[2021-09-10] MEDS: Apixaban 2.5 MG TAB PO SCH (09:15)
[2021-09-10] MEDS: Folic Acid 1 MG TAB PO SCH (09:15)
[2021-09-10] MEDS: Tamsulosin HCl 0.4 MG CAP PO SCH (09:15)
[2021-09-10] MEDS: Flecainide 50 MG TAB PO SCH (09:15)
[2021-09-10] MEDS: Polyethylene Glycol 3350 17 GM Packet PO SCH (09:15)
[2021-09-10] MEDS ORDERED: Senokot S 8.6-50 MG TAB PO SCH (21:00)
== END 2021-09-10 10:49 | DRG 522 ==
LOC: ERS 08:37 → ERHOLD 12:21 → SURG B 15:10 → ERHOLD 09-07 08:42 → SURG B 09-07 08:47
PROVIDERS: ADMIT Surgery; ATTEND Surgery
PROC: 0SRS0JZ Replacement of Left Hip Joint, Femoral Surface with Synthetic Substitute, Open Approach (ICD-10-PCS; principal; 2021-09-07)
DX: S72.012A Unspecified intracapsular fracture of left femur, initial encounter for closed fracture (principal); E87.1 Hypo-osmolality and hyponatremia; N17.9 Acute kidney failure, unspecified; W18.30XA Fall on same level, unspecified, initial encounter; Z20.822 Contact with and (suspected) exposure to COVID-19; M19.90 Unspecified osteoarthritis, unspecified site; I10 Essential (primary) hypertension; Z90.09 Acquired absence of other part of head and neck; Z79.01 Long term (current) use of anticoagulants; Z79.899 Other long term (current) drug therapy
CPT/HCPCS: 36415; 70450; 72125; 72170; 80048; 80053; 83735; 84100; 84484; 85025; 85610; 85730; 93005; 93010; 96374; C1713; C1776; G0390; J2270; J2370; J2704; J3010; J3475; J3490; J7030; J7050; J7120; S0028; U0002